=== PATIENT | female | born 1970 | race African-American/Black ===

== ENCOUNTER 2021-04-13 20:18 | Emergency (ER) | payer MEDICARE, OTHER ==
[~2021-04-13] VITALS: Ht 180.3 cm; Wt 120.5 kg
--- NOTE | 2021-04-13 21:46 | PHYS DOC ---
Past Medical History Past Medical History: Diabetes-Type II, High Cholesterol, Hypertension Past Surgical History: Cholecystectomy Smoking Status: Current Every Day Smoker Alcohol Use: None Drug Use: Marijuana General Adult EDM: Chief Complaint: MULTIPLE COMPLAINTS HPI: HPI: Patient is a 51 year old female who presents with a 2 day history of 8/10 left foot pain. Denies any trauma to the foot and states the pain began while she was laying in bed. Reports associated redness and pain over the foot as well as left 2nd toe swelling and pain. She is an uncontrolled diabetic and reports her last A1c a few weeks ago was 12. Denies any previous wounds or ulcers. She also reports a history of chronic back pain that has worsened recently. Denies fevers/chills, nausea/vomiting, chest pain, or shortness of breath. Review of Systems: Review of Systems: Constitutional: Denies fever or chills Eyes: Denies redness or eye pain HENT: Denies nasal congestion or sore throat Respiratory: Denies cough or shortness of breath Cardiovascular: Denies chest pain or palpitations GI: Denies abdominal pain, nausea, or vomiting : Denies dysuria or hematuria Musculoskeletal: Reports left foot and toe pain. Reports low back pain. Integument: Denies rash or skin lesions Neurologic: Reports neuropathy. Denies headache, focal weakness or sensory changes Complete systems were reviewed and found to be within normal limits, except as documented in this note. Heart Score: C/O Chest Pain: N/A Physical Exam: PE: Constitutional: Well developed, well nourished, no acute distress, non-toxic appearance HENT: Normocephalic, atraumatic Eyes: Conjunctiva normal, no discharge Neck: Normal range of motion, no tenderness, supple Lungs & Thorax: No respiratory distress, equal chest rise and fall Abdomen: Soft, no tenderness Skin: Warm, dry, no erythema, no rash Back: There is tenderness with palpation over the right lumbar musculature. Otherwise nontender. Extremities: There is erythema and tenderness over the medial aspect of the left foot and the left second toe. No ulcers. ROM intact. Distal pulses intact bilaterally. Neurologic: Alert and oriented X 3, normal motor function, normal sensory function, no focal deficits noted Psychologic: Affect normal, judgment normal Current Patient Data: Vital Signs: Vital Signs Date Time Temp Pulse Resp B/P (MAP) Pulse Ox O2 Delivery O2 Flow Rate FiO2 04/13/21 20:23 84 168/62 (97) 99 Room Air EKG: EKG: [] Radiology/Procedures: Radiology/Procedures: PROCEDURE: FOOT LEFT 3V Exam: Left foot 3 views INDICATION: Swelling TECHNIQUE: Frontal, lateral and oblique views of the left foot Comparisons: None FINDINGS: Bone mineralization is normal. No acute or healed fractures. Soft tissues are unremarkable. Joint spaces are well-maintained. IMPRESSION: No acute osseous abnormality Electronically signed by: Miguel Herndon MD (04/13/2021 10:26 PM) [facility] Course & Med Decision Making: Course & Med Decision Making 51 year old diabetic female presents with a 2 day history of left foot pain. Labs and imaging obtained and posted to chart. Administered 25mcg of fentanyl for pain with relief of symptoms. Was administered first dose of Lortab and Clindamyacin prior to discharge. Patient stable for discharge with outpatient follow-up with PCP. Provided appropriate referrals for PCP and podiatry. Discussed findings and plan with patient, who acknowledges understanding and agreement. Brandon Disclaimer: Brandon Disclaimer: This electronic medical record was generated, in whole or in part, using a voice recognition dictation system. Departure Departure Impression: Primary Impression: Foot pain, left Additional Impressions: Cellulitis Qualified Codes: L03.032 - Cellulitis of left toe Hyperglycemia Lactic acidosis Disposition: HOME / SELF CARE / HOMELESS Condition: STABLE Referrals: NO PCP (PCP) LILA BENAVIDES DPM Patient Instructions: Cellulitis, [id number], Hyperglycemia, Soth-ar-Saau, Lactic Acid, Lactate HAILEY BUSTILLO DO Apr 13, 2021 21:45
[2021-04-13] MEDS ORDERED: NEOMY/BACITR/POLYMYXIN OINT PACKET. TP ONE (22:15)
[2021-04-13] MEDS ORDERED: IV NORMAL SALINE 1000ML BAG 1,000 ML IV ONE (22:15)
[2021-04-13] MEDS ORDERED: fentaNYL PF VIAL 100 MCG/2 ML VIAL IV ONE (22:15)
--- NOTE | 2021-04-13 22:28 | RAD ---
Exam: Left foot 3 views INDICATION: Swelling TECHNIQUE: Frontal, lateral and oblique views of the left foot Comparisons: None FINDINGS: Bone mineralization is normal. No acute or healed fractures. Soft tissues are unremarkable. Joint spa annie are well-maintained. IMPRESSION: No acute osseous abnormality Electronically signed by: Miguel Herndon MD (04/13/2021 10:26 PM) [facility]
[2021-04-13 23:29] LABS: BASO % 0 % (0-3); EOS % 1 % (0-3); HEMATOCRIT 34.6 % (36.0-47.0); HEMOGLOBIN 11.6 g/dL (12.0-15.5); LYMPH # 1.7 x10^3/uL (1.0-4.8); LYMPH % 19 % (24-48); MEAN CORPUSCULAR HEMOGLOBIN 30 pg (25-35); MEAN CORPUSCULAR HGB CONC 34 g/dL (31-37); MEAN CORPUSCULAR VOLUME 90 fL (79-100); MONO % 10 % (0-9); NEUT # 6.5 x10^3/uL (1.8-7.7); NEUT % 70 % (31-73); PLATELET COUNT 244 x10^3/uL (140-400); RED BLOOD COUNT 3.85 x10^6/uL (3.50-5.40); RED CELL DISTRIBUTION WIDTH 14.5 % (11.5-14.5); WHITE BLOOD COUNT 9.3 x10^3/uL (4.0-11.0)
[2021-04-14] MEDS ORDERED: CLINDAMYCIN HCL 150 MG CAPSULE. PO ONE (00:15)
[2021-04-14] MEDS ORDERED: HYDROcodone/APAP 5/325MG 1 TAB TABLET PO ONE (00:15)
[2021-04-14 00:21] LABS: CALCIUM 8.4 mg/dL (8.5-10.1); CREATININE 1.4 mg/dL (0.6-1.0); GFR 47.8; POTASSIUM 3.9 mmol/L (3.5-5.1)
[2021-04-14 00:33] LABS: C-REACTIVE PROTEIN 11.1 mg/L (0-3.3)
[2021-04-14 00:35] VITALS: BP 182/76
[2021-04-14] MEDS ORDERED: HYDR-2761 PO (00:36)
[2021-04-14] MEDS ORDERED: CLIN300C9 PO (00:36)
[2021-04-15] MEDS ORDERED: HYDR-2761 PO (20:07)
[2021-04-15] MEDS ORDERED: CEPH500C PO (20:09)
[2021-04-15] MEDS ORDERED: FLUC150T PO (20:17)
== END 2021-04-14 00:50 | disposition home or self-care (01) ==
LOC: ER 20:18 → MERGE 20:18 → ER 04-14 00:50
DX: L03.032 Cellulitis of left toe (principal); E11.65 Type 2 diabetes mellitus with hyperglycemia; E87.2 Acidosis; E78.00 Pure hypercholesterolemia, unspecified; I10 Essential (primary) hypertension; F17.200 Nicotine dependence, unspecified, uncomplicated; Z90.49 Acquired absence of other specified parts of digestive tract
CPT/HCPCS: 36415; 73630; 80048; 83605; 85025; 85651; 86140; 87040; 96361; 96374; 99285; J3010; J7030

== ENCOUNTER 2021-04-20 08:32 | Outpatient (CLI) | payer MEDICARE ==
[2021-04-20] VITALS (14 sets, daily range): BP systolic 159–207; BP diastolic 61–108
[~2021-04-20] VITALS: Ht 180.3 cm; Wt 120.5 kg
[~2021-04-20 08:32] MED LIST: CEPH500C PO; CLIN300C9 PO; FLUC150T PO; HYDR-2761 PO; IODIXANOL 320 MG/ML 100 ML VIAL. ONE; LIDOCAINE 1% Multi-Dose 20 ML VIAL. ONE
--- NOTE | 2021-04-20 10:12 | PDOC ---
MODERATE SEDATION ASSESSMENT RISKS/ALTERNATIVES Risks/Alternatives Risks and alternatives of this type of sedation and procedure discussed with: RISK/ALTERNATIVES: Patient H & P ON CHART H & P H & P on chart and reviewed for co-morbid conditions and appropriate labs. H&P ON CHART: Yes STATUS PREG STATUS ASSESSED: N/A MEDS/ALLERGIES REVIEWED Meds/Allergies Reviewed Medications and Allergies including time and route of recently administered narcotics and sedatives. MEDS/ALLERGIES REVIEWED: Yes ASA RATING ASA RATING: III AIRWAY ASSESSMENT Airway Assessment Airway patency, oral function limitations, presence of caps, crowns, dentures, partials, and ability to extend neck assessed. AIRWAY ASSESSMENT: Yes MALLAMPATI SCORE MALLAMPATI SCORE: II PRE-SEDATION ASSESSMENT PRE-SEDATION ASSESSMENT: Yes SHERRILL SLAUGHTER MD Apr 20, 2021 10:12
[2021-04-20] MEDS ORDERED: fentaNYL PF VIAL 100 MCG/2 ML VIAL ONE ×2 (10:16→11:03)
[2021-04-20] MEDS ORDERED: VERAPAMIL 5 MG/2 ML VIAL. ONE (10:16)
[2021-04-20] MEDS ORDERED: HEPARIN for IV BOLUS 10,000 UNIT/10 ML VIAL. ONE (10:16)
[2021-04-20] MEDS ORDERED: MIDAZOLAM HCL/PF 2 MG/2 ML VIAL. ONE ×2 (10:16→11:03)
[2021-04-20] MEDS ORDERED: LIDOCAINE 1% PF 2 ML VIAL. ONE (10:17)
[2021-04-20] MEDS ORDERED: INSU100V13 SQ (10:18)
[2021-04-20] MEDS ORDERED: QUET400T4 PO (10:18)
[2021-04-20] MEDS ORDERED: PANT20TA2 PO (10:18)
[2021-04-20] MEDS ORDERED: CLIN300C9 PO (10:18)
[2021-04-20] MEDS ORDERED: NITROGLYCERIN 200 MCG/2 ML SYRINGE FOR CATH/VASC LAB. ONE ×2 (10:18→10:59)
[2021-04-20] MEDS ORDERED: CARV25TA2 PO (10:18)
[2021-04-20] MEDS ORDERED: FLUO20CA20 PO (10:18)
[2021-04-20] MEDS ORDERED: ASPI-630 PO (10:18)
[2021-04-20] MEDS ORDERED: ATOR40TA59 PO (10:18)
[2021-04-20] MEDS ORDERED: LOSA100T14 PO (10:18)
[2021-04-20] MEDS ORDERED: BUSP10TA PO (10:18)
[2021-04-20] MEDS ORDERED: METH-561 PO (10:18)
[2021-04-20] MEDS ORDERED: HYDR25TA PO (10:18)
[2021-04-20] MEDS ORDERED: OXYB5TAB10 PO (10:18)
[2021-04-20] MEDS ORDERED: TRAZ-123 PO (10:18)
[2021-04-20] MEDS ORDERED: CLOP75TA PO (10:18)
[2021-04-20] MEDS ORDERED: INSU100V31 SQ (10:18)
[2021-04-20] MEDS ORDERED: FURO20TA3 PO (10:18)
[2021-04-20] MEDS ORDERED: GABA600T7 PO (10:18)
[2021-04-20] MEDS ORDERED: CIPR500S2 PO (10:18)
[2021-04-20] MEDS ORDERED: NITROGLYCERIN 200 MCG/2 ML SYRINGE FOR CATH/VASC LAB. IART ONE (10:45)
[2021-04-20] MEDS ORDERED: MIDAZOLAM HCL/PF 2 MG/2 ML VIAL. IV ONE (10:45)
[2021-04-20] MEDS ORDERED: HEPARIN for IV BOLUS 10,000 UNIT/10 ML VIAL. IART ONE (10:45)
[2021-04-20] MEDS ORDERED: IODIXANOL 320 MG/ML 100 ML VIAL. IART ONE (10:45)
[2021-04-20] MEDS ORDERED: HEPARIN for IV BOLUS 10,000 UNIT/10 ML VIAL. IV ONE (10:45)
[2021-04-20] MEDS ORDERED: LIDOCAINE 1% PF 2 ML VIAL. INJ ONE (10:45)
[2021-04-20] MEDS ORDERED: fentaNYL PF VIAL 100 MCG/2 ML VIAL IV ONE (10:45)
[2021-04-20] MEDS ORDERED: VERAPAMIL 5 MG/2 ML VIAL. IART ONE (10:45)
[2021-04-20] MEDS ORDERED: diphenhydrAMINE 50 MG/ML VIAL ONE (11:03)
[2021-04-20] MEDS ORDERED: ASPIRIN 325 MG TABLET ONE (11:56)
[2021-04-20] MEDS ORDERED: ASPIRIN 325 MG TABLET PO ONE (12:00)
[2021-04-20] MEDS ORDERED: diphenhydrAMINE 50 MG/ML VIAL IVP ONE (12:00)
[2021-04-20] MEDS ORDERED: ACETAMINOPHEN 325 MG TABLET. PO PRN (12:15)
[2021-04-20] MEDS ORDERED: IV 1/2 NORMAL SALINE 1,000 ML IV SCH (12:15)
[2021-04-20] MEDS ORDERED: NITROGLYCERIN SUBLINGUAL 0.4 MG BOTTLE OF 25. SL PRN (12:15)
--- NOTE | 2021-04-20 12:25 | CARD ---
MR#: [id number] Date of Study: 04/20/2021 Ordering Physician: SHERRILL SLAUGHTER, Referring Physician: SHERRILL SLAUGHTER Tech: Camille Rosales RT(R) APPROVED REPORT Patient StatusOUT-PATIENT Squaring Shear Operator: Camille Rosales RT(R) Procedure(s) performed: 1. Aortogram with bilateral lower extremity runoff via right transradial sriram durand 2. Successful SOLAR SALES REP to chronic total occlusion involving the left superficial femoral artery 3. Successful SOLAR SALES REP to the right superficial femoral artery MODERATE SEDATION TIME: 100 MINUTES FLUORO TIME: 30.5 MIN DOSE: 131.4 GYCM2 CONTRAST: 140CC VISI INDICATION FOR PROCEDURE The indication(s) include : Peripheral artery disease with critical limb ischemia. CASE TECHNIQUE After explaining the risks, benefits, and alternative options, informed consent was obtained from the patient. IV conscious sedation was used throughout procedure with appropriate monitoring and was per formed in the presence of a registered nurse who was an independent trained observer other than the iveth morfin performing the procedure. During this case, Fluoroscopy and low osmolar contrast were used f or imaging. Specimen(s) Removed: No Estimated Blood loss: 15 cc's. PROCEDURE NARRATIVE After explaining the risk, benefits and alternative options, informed consent was obtained from patie nt. Patient was brought to the cardiac [facility] and her right wrist was prepped and draped in the us ual fashion after confirming a positive modified Dave's test. Arterial access was obtained in the r ight radial artery and a 6 Slovak sheath was inserted. 6 pigtail catheter was used to advance a guid ewire into the descending aorta which was then exchanged over the wire to 6F R2P PV multicurve cathet er with sideholes. This was positioned in the distal descending aorta and aortoiliac angiography was performed. The tip was then advanced into the left superficial femoral artery and selective left lo wer extremity angiography was performed. Subsequently, with the tip positioned in the right superfic ial femoral artery, selective right lower extremity angiography was performed. The following finding s were noted: FINDINGS 1. No significant stenosis involving the distal descending aorta 2. No significant stenosis involving left common iliac artery. The right common iliac artery showed 30% proximal stenosis. 3. No significant stenosis involving bilateral external and internal iliac arteries. 4. No significant stenosis involving bilateral common femoral arteries. 5. The left superficial femoral artery showed a long 100% chronic total occlusion involving the mid segment with distal reconstitution from collaterals. The right superficial femoral artery showed cardenas dem 70 and 95% stenoses in the mid to distal segment. 6. No significant stenosis involving the popliteal arteries bilaterally. 7. There is good three vessel runoff below the knee bilaterally. INTERVENTION The PVI catheter was exchanged over a guidewire to 149 cm 6F R2P destination Glidesheath slender and the tip was positioned in the left superficial femoral artery under fluoroscopy guidance. The chroni c total occlusion of the left superficial femoral artery was crossed with a 0.035 inch 400 cm Glidewi re with backup support from 200 cm Viper cath. Contrast injection through the catheter confirmed int raluminal location. Multiple inflations were then performed within the lesion using MobilePro R2P Metac ross 5 x 100 balloon. Follow-up angiography showed resolution of the lesions with good distal flow. The Glidesheath was then advanced under fluoroscopic guidance over a Glidewire into the right lower extremity and the tip was positioned in the right superficial femoral artery. The lesions in the dis la nena segment were crossed with the Glidewire and dilated successfully with the 5.0 x 100 mm Metacross balloon. Follow-up angiography showed resolution of the lesion with good distal flow. Patient sanjuana ated the procedure well. Hemostasis was achieved using TR band. There were no immediate complicatio ns. Conclusion 1. Severe bilateral lower extremity peripheral artery disease as described above 2. Successful balloon SOLAR SALES REP to chronic total occlusion involving the left superficial femoral artery 3. Successful balloon SOLAR SALES REP to the right superficial femoral artery Recommendations Vascular risk factor modification Signed by : Sherrill Slaughter, Electronically Approved : 04/20/2021 12:25:14
[2021-04-20] MEDS ORDERED: CARVEDILOL 12.5 MG TABLET. PO SCH (13:00)
[2021-04-20] MEDS ORDERED: LOSARTAN POTASSIUM 50 MG TABLET. PO SCH (13:00)
--- NOTE | 2021-04-20 14:49 | NUR ---
Discharge Note: SABAS YORK Discharge instructions and discharge home medications reviewed with Patient and a copy given. All questions have been answered and understanding verbalized. The following instructions and handouts were given: moderate sedation and radial site care. Discontinued periheral IV, no complications. Right radial site without bleeding,dsg changed and arm board reapplied. Patient discharged to home with her mom via private vehicle.
[2021-04-21] MEDS ORDERED: ASPIRIN CHEWABLE 81 MG TABLET. PO SCH (08:00)
--- NOTE | 2021-04-22 10:29 | CARD ---
MR#: [id number] Date of Study: 04/20/2021 Ordering Physician: SHERRILL SLAUGHTER, Referring Physician: SHERRILL SLAUGHTER Tech: Kate Shirley TAMMY APPROVED REPORT EXAM: Two-dimensional and M-mode echocardiogram with Doppler and color Doppler. Other Information Quality : Technically LimitedHR: 67bpm Rhythm : NSR INDICATION RISK FACTORS Hypertension Obesity Hyperlipidemia Family History 2D DIMENSIONS Left Atrium(2D)3.5 (1.6-4.0cm)IVSd1.5 (0.7-1.1cm) Aortic Root(2D)4.5 (2.0-3.7cm)LVDd1.6 (3.9-5.9cm) LEFT VENTRICLE The left ventricle is normal size. There is moderate concentric left ventricular hypertrophy. The lef t ventricular systolic function is normal and the ejection fraction is within normal range. Estimated 55% There is normal LV segmental wall motion. Transmitral Doppler flow pattern is Grade I-abnormal r elaxation pattern. RIGHT VENTRICLE The right ventricle is normal size. There is normal right ventricular wall thickness. The right ventr icular systolic function is normal. ATRIA The left atrium size is normal. The right atrium size is normal. The interatrial septum is intact wit h no evidence for an atrial septal defect or patent foramen ovale as noted on 2-D or Doppler imaging. AORTIC VALVE The aortic valve is normal in structure and function. Doppler and Color Flow revealed no significant aortic regurgitation. There is no significant aortic valvular stenosis. MITRAL VALVE The mitral valve is normal in structure and function. There is no evidence of mitral valve prolapse. There is no mitral valve stenosis. Doppler and Color Flow revealed no mitral valve regurgitation note d. TRICUSPID VALVE The tricuspid valve is normal in structure and function. Doppler and Color Flow revealed no tricuspid valve regurgitation noted. There is no tricuspid valve prolapse or vegetation. There is no tricuspid valve stenosis. PULMONIC VALVE Doppler and Color Flow revealed no pulmonic valvular regurgitation. There is no pulmonic valvular nichole nosis. GREAT VESSELS The aortic root is normal in size. The ascending aorta is normal in size. There is small diastolic fl ow noted in the short axis windows suggestive of possible communication between the aorta and pulmona ry artery. Eccentric trivial pulmonary regurgitation is also on the differential. The IVC is normal i n size and collapses >50% with inspiration. PERICARDIAL EFFUSION There is no evidence of significant pericardial effusion. Critical Notification Critical Value: No <Conclusion> There is moderate concentric left ventricular hypertrophy. The left ventricular systolic function is normal and the ejection fraction is within normal range. E stimated 55% There is normal LV segmental wall motion. There is small diastolic flow noted in the short axis windows suggestive of possible communication be tween the aorta and pulmonary artery. Eccentric trivial pulmonary regurgitation is also on the differ ential. Signed by : Adolfo Redding, Electronically Approved : 04/22/2021 10:28:54
== END 2021-04-20 15:03 | disposition home or self-care (01) ==
LOC: CCL 08:32
PROVIDERS: ATTEND Internal Medicine Cardiovascular Disease
DX: I73.9 Peripheral vascular disease, unspecified (principal); R07.9 Chest pain, unspecified; E66.9 Obesity, unspecified; I11.9 Hypertensive heart disease without heart failure; I10 Essential (primary) hypertension; E78.00 Pure hypercholesterolemia, unspecified; K21.9 Gastro-esophageal reflux disease without esophagitis; M19.90 Unspecified osteoarthritis, unspecified site; E11.9 Type 2 diabetes mellitus without complications; F41.9 Anxiety disorder, unspecified; F32.9 Major depressive disorder, single episode, unspecified; F17.210 Nicotine dependence, cigarettes, uncomplicated; Z79.82 Long term (current) use of aspirin; Z79.84 Long term (current) use of oral hypoglycemic drugs; Z79.899 Other long term (current) drug therapy; Z98.890 Other specified postprocedural states; Z72.89 Other problems related to lifestyle; Z88.8 Allergy status to other drugs, medicaments and biological substances
CPT/HCPCS: 37224; 75625; 75716; 93306; 99152; 99153; C1725; C1769; C1887; C1894; J1200; J1644; J2250; J3010; J3490; Q9967; 62321; 62323

== ENCOUNTER 2021-05-12 17:09 | Emergency (ER) | payer MEDICARE ==
[~2021-05-12] VITALS: Ht 180.3 cm; Wt 120.9 kg
[~2021-05-12 17:09] MED LIST changes: +ASPI-630 PO; +ATOR40TA59 PO; +BUSP10TA PO; +CARV25TA2 PO; +CIPR500S2 PO; +CLOP75TA PO; +FLUO20CA20 PO; +FURO20TA3 PO; +GABA600T7 PO; +HYDR25TA PO; +INSU100V13 SQ; +INSU100V31 SQ; -IODIXANOL 320 MG/ML 100 ML VIAL. ONE; -LIDOCAINE 1% Multi-Dose 20 ML VIAL. ONE; +LOSA100T14 PO; +METH-561 PO; +OXYB5TAB10 PO; +PANT20TA2 PO; +QUET400T4 PO; +TRAZ-123 PO
[2021-05-12 20:03] VITALS: BP 184/90
--- NOTE | 2021-05-12 20:28 | PHYS DOC ---
Past Medical History Past Medical History: Diabetes-Type II, High Cholesterol, Hypertension Additional Past Medical Histor: NEUROPATHY Past Surgical History: Appendectomy, Cholecystectomy, Hysterectomy Additional Past Surgical Histo: "STOMACH STENT" Smoking Status: Current Every Day Smoker Alcohol Use: None Drug Use: Marijuana General Adult EDM: Chief Complaint: FLANK PAIN HPI: HPI: Patient is a 51 year old female with past medical history hypertension hyperlipidemia diabetes presents with a 4-week history of left flank/back pain that radiates to the suprapubic and buttocks region. Patient states 4 weeks ago she was seen at [facility] and she was prescribed an antibiotic that started with a C that she thinks she took 3 times a day. Patients pain is reproducible with movement and the area is tender to palpation. Patient denies any injuries. Patient without any fevers. She denies any saddle anesthesia loss of bowel or bladder. Review of Systems: Review of Systems: Review of systems: Constitutional symptoms- No fever, no chills. Eyes- No Discharge, No Visual Loss Respiratory symptoms- No shortness of breath, No wheezing, No Dyspnea on Exertion Cardiovascular Systems; No chest pain, No Palpitations, No syncope Gastrointestinal symptoms: NO abdominal pain, no nausea, no vomiting or diarrhea. Genitourinary symptoms: No dysuria. Positive Urinary frequency Musculoskeletal symptoms: Positive back pain No extremity pain. NEUROLOGICAL Symptoms: No headache, no generalized weakness; No focal Weakness Skin: No rash. Heart Score: C/O Chest Pain: N/A Risk Factors: Risk Factors: DM, Current or recent (<one month) smoker, HTN, HLP, family history of CAD, obesity. Risk Scores: Score 0 - 3: 2.5% MACE over next 6 weeks - Discharge Home Score 4 - 6: 20.3% MACE over next 6 weeks - Admit for Clinical Observation Score 7 - 10: 72.7% MACE over next 6 weeks - Early Invasive Strategies Allergies: Allergies: Allergies Coded Allergies Type Severity Reaction Last Updated Verified lisinopril Allergy Unknown 04/18/21 Yes Physical Exam: PE: General: alert, no acute distress. Skin: warm, dry and intact, no erythema, no rash. HENT: bilateral external ears normal, oropharynx moist, nose normal. Head:: Normocephalic, atraumatic. Neck: Trachea midline. Eyes: EOMI, Normal conjunctiva, No drainage CARDIOVASCULAR: Regular rate and rhythm RESPIRATORY: No respiratory distress Back: Full range of motion. Tenderness to palpation left flank lateral left paraspinal lumbar region. Patient's buttocks on the left is tender to palpation MUSCULOSKELETAL: Full range of motion of bilateral upper and lower extremities. GASTROINTESTINAL: Abdomen soft without rebound or guarding. NEUROLOGICAL: Alert and noted to person, place and time. No neurological deficits observed Psychiatric: Cooperative. Normal judgment EKG: EKG: [] Radiology/Procedures: Radiology/Procedures: [] Course & Med Decision Making: Course & Med Decision Making Pertinent Labs and Imaging studies reviewed. (See chart for details) [] Patient was evaluated for chief complaint. Work-up consisted of urinalysis. Results reviewed and discussed with patient. Patient's urine not consistent with urinary tract infection. Treatment included pain medications with improvement. Patient was discharged home on pain muscle relaxant medications and steroids. Patient instructed to follow-up with primary care physician. Brandon Disclaimer: Brandon Disclaimer: This electronic medical record was generated, in whole or in part, using a voice recognition dictation system. Departure Departure Impression: Primary Impression: Flank pain Additional Impressions: Left flank pain Back pain Sciatic pain Disposition: HOME / SELF CARE / HOMELESS Condition: STABLE Referrals: BERYL FIGUEROA (PCP) Patient Instructions: Flank Pain, Sciatica Scripts Cyclobenzaprine Hcl (CYCLOBENZAPRINE HCL) 10 Mg Tablet 1 TAB PO QHS, #20 TAB Prov: ALMA CORONA I DO 05/12/21 Tramadol Hcl (ULTRAM) 50 Mg Tablet 1 TAB PO PRN Q6HRS PRN for pain MDD 4 Tablet(s) for 7 Days, #28 TAB 0 Refills Prov: ALMA CORONA DO 05/12/21 Prednisone (PREDNISONE) 50 Mg Tablet 1 TAB PO DAILY, #5 TAB Prov: ALMA CORONA I DO 05/12/21 ALMA CORONA DO May 12, 2021 20:28
[2021-05-12 20:40] LABS: BILIRUBIN,URINE NEGATIVE (NEG); CLARITY,URINE CLEAR; COLOR,URINE YELLOW; NITRITE,URINE NEGATIVE (NEG); PROTEIN,URINE NEGATIVE (NEG-TRACE)
[2021-05-12 20:45] LABS: U PREG PATIENT NEGATIVE (NEG)
[2021-05-12 20:52] LABS: BACTERIA,URINE FEW /HPF (0-FEW); RBC,URINE OCC /HPF (0-2); WBC,URINE OCC /HPF (0-4)
[2021-05-12] MEDS ORDERED: KETOROLAC 60 MG/2 ML VIAL. IM ONE (21:30)
[2021-05-12] MEDS ORDERED: PRED50TA PO (21:47)
[2021-05-12] MEDS ORDERED: TRAM-48 PO (21:47)
[2021-05-12] MEDS ORDERED: CYCL10TA2 PO (21:47)
== END 2021-05-12 22:33 | disposition home or self-care (01) ==
LOC: ER 17:09
DX: M54.42 Lumbago with sciatica, left side (principal); R10.9 Unspecified abdominal pain; R35.0 Frequency of micturition; E78.00 Pure hypercholesterolemia, unspecified; I10 Essential (primary) hypertension; E11.40 Type 2 diabetes mellitus with diabetic neuropathy, unspecified; F17.200 Nicotine dependence, unspecified, uncomplicated; Z90.89 Acquired absence of other organs; Z90.49 Acquired absence of other specified parts of digestive tract; Z90.710 Acquired absence of both cervix and uterus; Z88.8 Allergy status to other drugs, medicaments and biological substances
CPT/HCPCS: 81001; 81025; 96372; 99283; J1885

== ENCOUNTER → 2021-05-24 | Outpatient (CLI) | payer MEDICARE ==
[2021-05-12 20:03] VITALS: BP 184/90
[~2021-05-24] MED LIST changes: +CLIN-94 PO; -CLIN300C9 PO; +CYCL10TA2 PO; +PRED50TA PO; +TRAM-48 PO
--- NOTE | 2021-05-25 08:26 | KCIC ---
EXAM: XR LUMBAR SPINE 4+V 05/24/2021 12:37 PM CLINICAL INDICATION: Chronic lower back pain, worse on left. COMPARISON: None TECHNIQUE: 5 views of the lumbar spine FINDINGS: There 5 nonrib-bearing lumbar vertebral bodies. No acute fracture. Alignment is normal. Th ere is mild disc space narrowing with anterior osteophytes, greatest at L3-L4 and L5-S1. Multilevel f acet arthrosis, severe at L3-4 through L5-S1. There is degenerative disc disease in the lower thoraci c spine. Cholecystectomy clips are noted. IMPRESSION: 1. Mild multilevel degenerative disc disease. 2. Advanced multilevel facet arthrosis, severe at L3-L4 through L5-S1. Electronically signed by: Johanny Issa MD (05/25/2021 8:24 AM) [id number]
== END ==
LOC: KCIC 12:34
PROVIDERS: ATTEND Family Medicine
DX: M47.817 Spondylosis without myelopathy or radiculopathy, lumbosacral region (principal); M51.34 Other intervertebral disc degeneration, thoracic region; Z90.49 Acquired absence of other specified parts of digestive tract
CPT/HCPCS: 72110

== ENCOUNTER 2021-06-10 11:23 | Emergency (ER) | payer MEDICARE, MEDICAID ==
[~2021-06-10] VITALS: Ht 180.3 cm; Wt 120.0 kg
[2021-06-10] MEDS ORDERED: ORPHENADRINE CITRATE 60 MG/2 ML VIAL. IM ONE (12:30)
[2021-06-10] MEDS ORDERED: KETOROLAC TROMETHAMINE 10 MG TABLET PO ONE (12:30)
[2021-06-10] MEDS ORDERED: traMADol 50 MG TABLET PO ONE (12:30)
[2021-06-10 12:37] LABS: BILIRUBIN,URINE NEGATIVE (NEG); CLARITY,URINE CLEAR; COLOR,URINE YELLOW; NITRITE,URINE NEGATIVE (NEG); PH,URINE 7.5 (<5.0-8.0); PROTEIN,URINE NEGATIVE (NEG-TRACE); UROBILINOGEN,URINE 0.2 mg/dL (0.2 mg/dL)
[2021-06-10 12:54] LABS: BASO # 0.1 x10^3/uL (0.0-0.2); BASO % 1 % (0-3); EOS % 0 % (0-3); HEMATOCRIT 39.4 % (36.0-47.0); LYMPH % 11 % (24-48); MEAN CORPUSCULAR HEMOGLOBIN 29 pg (25-35); MEAN CORPUSCULAR HGB CONC 33 g/dL (31-37); MEAN CORPUSCULAR VOLUME 89 fL (79-100); MONO % 6 % (0-9); NEUT # 15.2 x10^3/uL (1.8-7.7); NEUT % 83 % (31-73); PLATELET COUNT 275 x10^3/uL (140-400); RED BLOOD COUNT 4.43 x10^6/uL (3.50-5.40); WHITE BLOOD COUNT 18.3 x10^3/uL (4.0-11.0)
--- NOTE | 2021-06-10 12:54 | RAD ---
EXAMINATION: Noncontrast CT of the abdomen and pelvis. INDICATION: Dysuria COMPARISONS: CT abdomen pelvis from 11/25/2013 TECHNIQUE: Axial 3 mm thick sections were obtained without oral or IV contrast. Sagittal and coronal reformats were obtained. FINDINGS: KIDNEYS AND RENAL COLLECTING SYSTEMS RIGHT KIDNEY AND URETER: No evidence of right renal or ureteric calculi. No hydronephrosis. No focal renal lesions, within the limits of this noncontrast examination. LEFT KIDNEY AND URETER: No evidence of left renal or ureteric calculi. No hydronephrosis. No focal renal lesions, within the limits of this noncontrast examination. URINARY BLADDER: Decompressed without evidence of acute process. OTHER: Bibasilar scarring and/or atelectasis. Liver is normal in size and morphology. No discrete hepatic lesions. The gallbladder is surgically ab sent. No significant biliary ductal dilation. The spleen, adrenals, and atrophic pancreas are unremar kable. Stomach is normal. No evidence of bowel obstruction or focal wall thickening. There is a moderate sto ol burden within the descending and proximal transverse colon. Scattered sigmoid diverticulosis witho ut evidence of diverticulitis. No free intra-abdominal air or free fluid. Appendix is surgically abse nt. No pathologically enlarged abdominal or pelvic lymph nodes. Incomplete evaluation of the stent at the proximal SMA. Mild atherosclerotic disease of the origin of the celiac artery. Mild aortobiiliac ath erosclerotic disease. Uterus is absent. No suspicious adnexal masses. Anterior abdominal wall is unremarkable. Multilevel degenerative changes with no acute fracture or suspicious osseous abnormality. IMPRESSION: 1. No evidence of acute process in the abdomen or pelvis to correlate with patient's symptoms. 2. Chronic/incidental findings, as above. Electronically signed by: Jakob Drake DO (06/10/2021 12:52 PM) [id number]
[2021-06-10 12:59] LABS: BACTERIA,URINE 0 /HPF (0-FEW); RBC,URINE 0 /HPF (0-2); WBC,URINE 0 /HPF (0-4)
[2021-06-10 13:03] LABS: CALCIUM 8.4 mg/dL (8.5-10.1); GFR 70.5; POTASSIUM 3.8 mmol/L (3.5-5.1)
--- NOTE | 2021-06-10 13:07 | PHYS DOC ---
Past Medical History Past Medical History: Diabetes-Type II (insulin dependent), High Cholesterol, Hypertension Additional Past Medical Histor: NEUROPATHY (VIANEY DONIS) Past Surgical History: Angioplasty (bilateral LE), Appendectomy, Cholecystectomy, Hysterectomy Additional Past Surgical Histo: "STOMACH STENT" (VIANEY DONIS) Smoking Status: Current Every Day Smoker Additional Information: PT REPORTS APPROX 1-2 CIGARETTES PER DAY, THAT SHE IS TRYING TO QUIT. Alcohol Use: Occasionally Drug Use: Marijuana Social History Narrative: PT REPORTS OCCASIONALLY MARIJUANA (VIANEY DONIS) General Adult EDM: Chief Complaint: MULTIPLE COMPLAINTS HPI: HPI: Patient is a 51 year old female with history of chronic back pain who presents with worsening back pain, sore throat and suicidal ideation. Patient states her back pain has been ongoing for over 1 year, but for the past week has worsened and is 10/10. Patient states she was diagnosed at with bulging disks, spinal stenosis and arthritis. She saw Dr. Mendoza 2 weeks ago and arthritis was seen on x-ray. She has been waiting on a call from the spine clinic for further evaluation and management. She reports associated dysuria, denies hematuria. Patient sore throat began yesterday. She denies any sick contacts, however was diagnosed with Covid 1 month ago. She is fully vaccinated, with her last va ccine dose being in December. Talking and swallowing exacerbates her throat pain. Patient reports SI intermittently for weeks. She denies having any plan to hurt herself and states "I am just tired of being in pain," and becomes tearful. 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 Patient has no other complaints at this time. (VIANEY DONIS) Review of Systems: Review of Systems: Constitutional: Denies fever or chills. Eyes: Denies change in visual acuity. HENT: See HPI Respiratory: Denies cough or shortness of breath. Cardiovascular: Denies chest pain or edema. GI: Denies abdominal pain, nausea, vomiting, bloody stools or diarrhea. : See HPI Musculoskeletal: See HPI Neurologic: Denies headache, paresthesias, focal weakness. Psychiatric: See HPI (VIANEY DONIS) Heart Score: C/O Chest Pain: No (VIANEY DONIS) Current Medications: Current Medications Medications (Trade) Dose Ordered Sig/[facility] Start Time Stop Time Status Last Admin Dose Admin Ketorolac Tromethamine (Toradol) 20 mg 1X ONCE 06/10/21 12:30 06/10/21 12:38 DC 06/10/21 12:53 20 MG Orphenadrine Citrate (Norflex) 60 mg 1X ONCE 06/10/21 12:30 06/10/21 12:38 DC 06/10/21 12:55 60 MG Tramadol HCl (Ultram) 50 mg 1X ONCE 06/10/21 12:30 06/10/21 12:38 DC 06/10/21 12:53 50 MG (VIANEY DONIS) Allergies: Allergies: Allergies Coded Allergies Type Severity Reaction Last Updated Verified lisinopril Allergy Unknown 04/18/21 Yes (VIANEY DONIS) Physical Exam: PE: Constitutional: Well developed, well nourished, no acute distress, non-toxic appearance. HENT: Normocephalic, atraumatic, bilateral external ears normal, oropharynx moist, oropharynx erythematous with bilaterally 2+ swollen tonsils, nose normal. Eyes: Conjunctiva normal, no discharge. Neck: Normal range of motion, anterior cervical LAD, no stridor. Cardiovascular: Heart rate regular rhythm, no murmur. Lungs & Thorax: Bilateral breath sounds clear to auscultation. Abdomen: Bowel sounds normal, soft, no tenderness, no masses, no pulsatile masses. Skin: Warm, dry, no erythema, no rash. Back: No tenderness, no CVA tenderness, straight leg raise test negative. Neurologic: Alert and oriented x3, normal motor function, normal sensory function, no focal deficits noted. Psychologic: Affect desperate for pain management, fair judgment, mood depressed. (VIANEY DONIS) Current Patient Data: Labs: Laboratory Tests Test 06/10/21 11:56 06/10/21 12:40 06/10/21 12:41 06/10/21 12:42 Urine Collection Type Void Urine Color Yellow Urine Clarity Clear Urine pH 7.5 (<5.0-8.0) Urine Specific [place] 1.010 (1.000-1.030) Urine Protein Negative mg/dL (NEG-TRACE) Urine Glucose (UA) Negative mg/dL (NEG) Urine Ketones (Stick) Negative mg/dL (NEG) Urine Blood Negative (NEG) Urine Nitrite Negative (NEG) Urine Bilirubin Negative (NEG) Urine Urobilinogen Dipstick 0.2 mg/dL (0.2 mg/dL) Urine Leukocyte Esterase Negative (NEG) Urine RBC 0 /HPF (0-2) Urine WBC 0 /HPF (0-4) Urine Squamous Epithelial Cells Few /LPF Urine Bacteria 0 /HPF (0-FEW) White Blood Count 18.3 x10^3/uL (4.0-11.0) Red Blood Count 4.43 x10^6/uL (3.50-5.40) Hemoglobin 13.0 g/dL (12.0-15.5) Hematocrit 39.4 % (36.0-47.0) Mean Corpuscular Volume 89 fL (79-100) Mean Corpuscular Hemoglobin 29 pg (25-35) Mean Corpuscular Hemoglobin Concent 33 g/dL (31-37) Red Cell Distribution Width 14.0 % (11.5-14.5) Platelet Count 275 x10^3/uL (140-400) Neutrophils (%) (Auto) 83 % (31-73) Lymphocytes (%) (Auto) 11 % (24-48) Monocytes (%) (Auto) 6 % (0-9) Eosinophils (%) (Auto) 0 % (0-3) Basophils (%) (Auto) 1 % (0-3) Neutrophils # (Auto) 15.2 x10^3/uL (1.8-7.7) Lymphocytes # (Auto) 2.0 x10^3/uL (1.0-4.8) Monocytes # (Auto) 1.0 x10^3/uL (0.0-1.1) Eosinophils # (Auto) 0.0 x10^3/uL (0.0-0.7) Basophils # (Auto) 0.1 x10^3/uL (0.0-0.2) Sodium Level 142 mmol/L (136-145) Potassium Level 3.8 mmol/L (3.5-5.1) Chloride Level 104 mmol/L (98-107) Carbon Dioxide Level 30 mmol/L (21-32) Anion Gap 8 (6-14) Blood Urea Nitrogen 10 mg/dL (7-20) Creatinine 1.0 mg/dL (0.6-1.0) Estimated GFR (Cockcroft-Gault) 70.5 BUN/Creatinine Ratio 10 (6-20) Glucose Level 156 mg/dL (70-99) Calcium Level 8.4 mg/dL (8.5-10.1) Total Bilirubin 0.3 mg/dL (0.2-1.0) Aspartate Amino Transf (AST/SGOT) 14 U/L (15-37) Alanine Aminotransferase (ALT/SGPT) 27 U/L (14-59) Alkaline Phosphatase 117 U/L (46-116) Total Protein 6.9 g/dL (6.4-8.2) Albumin 3.4 g/dL (3.4-5.0) Albumin/Globulin Ratio 1.0 (1.0-1.7) Influenza Type A Antigen Negative (NEGATIVE) Influenza Type B Antigen Negative (NEGATIVE) Group A Streptococcus Rapid Positive (NEGATIVE) Vital Signs: Vital Signs Date Time Temp Pulse Resp B/P (MAP) Pulse Ox O2 Delivery O2 Flow Rate FiO2 06/10/21 12:58 80 16 159/71 (100) 99 Room Air 06/10/21 11:47 98.9 98.9 (VIANEY DONIS) Radiology/Procedures: Radiology/Procedures: PROCEDURE: CT ABDOMEN PELVIS WO CONTRAST EXAMINATION: Noncontrast CT of the abdomen and pelvis. INDICATION: Dysuria COMPARISONS: CT abdomen pelvis from 11/25/2013 TECHNIQUE: Axial 3 mm thick sections were obtained without oral or IV contrast. Sagittal and coronal reformats were obtained. FINDINGS: KIDNEYS AND RENAL COLLECTING SYSTEMS RIGHT KIDNEY AND URETER: No evidence of right renal or ureteric calculi. No hydronephrosis. No focal renal lesions, within the limits of this noncontrast examination. LEFT KIDNEY AND URETER: No evidence of left renal or ureteric calculi. No hydronephrosis. No focal renal lesions, within the limits of this noncontrast examination. URINARY BLADDER: Decompressed without evidence of acute process. OTHER: Bibasilar scarring and/or atelectasis. Liver is normal in size and morphology. No discrete hepatic lesions. The gallbl adder is surgically absent. No significant biliary ductal dilation. The spleen, adrenals, and atrophic pancreas are unremarkable. Stomach is normal. No evidence of bowel obstruction or focal wall thickening. There is a moderate stool burden within the descending and proximal transverse colon. Scattered sigmoid diverticulosis without evidence of diverticulitis. No free intra-abdominal air or free fluid. Appendix is surgically absent. No pathologically enlarged abdominal or pelvic lymph nodes. Incomplete evaluation of the stent at the proximal SMA. Mild atherosclerotic disease of the origin of the celiac artery. Mild aortobiiliac atherosclerotic disease. Uterus is absent. No suspicious adnexal masses. Anterior abdominal wall is unremarkable. Multilevel degenerative changes with no acute fracture or suspicious osseous abnormality. IMPRESSION: 1. No evidence of acute process in the abdomen or pelvis to correlate with patient's symptoms. 2. Chronic/incidental findings, as above. Electronically signed by: Jakob Drake DO (06/10/2021 12:52 PM) [id number] (VIANEY DONIS) Course & Med Decision Making: Course & Med Decision Making Pertinent Labs and Imaging studies reviewed. (See chart for details) While patient states that she wants to kill herself, she states it is secondary to being in pain. Abdominal CT without contrast ordered to evaluate for renal stones with acute on chronic back pain and dysuria. Rapid strep test positive. Patient will be treated with penicillin. 1330: Patient is now resting in bed and appears much more comfortable. She states that her pain is now tolerable 6/10 and denies SI. She will be prescribed tramadol, Toradol, Norflex to treat her back pain until she is able to see spine clinic. Patient states that she is compliant and takes her medications for anxiety, depression with psychosis, PTSD. She reports she feels safe and well enough to go home. Patient understands and is agreeable to discharge plan. (VIANEY DONIS) Dragon Disclaimer: Dragon Disclaimer: This electronic medical record was generated, in whole or in part, using a voice recognition dictation system. (VIANEY DONIS) Departure Departure Impression: Primary Impression: Strep pharyngitis Additional Impressions: Chronic back pain greater than 3 months duration Anxiety and depression Disposition: 01 HOME / SELF CARE / HOMELESS Condition: STABLE Referrals: Chang MENDOZA MD (PCP) CHONG CUEVA MD Patient Instructions: Chronic Back Pain, Strep Throat, [id number], Suicidal Feelings, How to Help Yourself Additional Instructions: Your work-up today revealed that you do have strep throat. You're prescribed penicillin. Please take the full course of antibiotics. Additionally you were provided with prescriptions for the medications that you received here in the emergency department to treat your chronic back pain. Due to the chronic nature of your back pain, a single prescriber would be more appropriate for pain management versus multiple ER visits. You should follow-up with Dr. Mendoza or Dr. Cueva regarding further evaluation and management of your chronic pain. He may be able to provide you with a second referral to the spine clinic, so that you may be seen more promptly. Please return to the emergency department for recurrent symptoms, worsening symptoms, or development of new symptoms. Scripts Ketorolac Tromethamine (KETOROLAC TROMETHAMINE) 10 Mg Tablet 1 TAB PO PRN Q6HRS for 5 Days, #20 TAB Prov: VIANEY DONIS 06/10/21 Tramadol Hcl (TRAMADOL HCL) 50 Mg Tablet 50 MG PO PRN Q6HRS PRN for PAIN, #20 TAB Prov: VIANEY DONIS 06/10/21 Orphenadrine Citrate (ORPHENADRINE CITRATE) 100 Mg Tablet.er 1 TAB PO BID, #20 TAB 1 Refill Prov: VIANEY DONIS 06/10/21 Penicillin V Potassium (PENICILLIN V POTASSIUM) 500 Mg Tablet 1 TAB PO BID for strep pharyngitis for 10 Days, #20 TAB Prov: VIANEY DONIS 06/10/21 Attending Signature Attending Signature I have reviewed the PA/TOWER LOADER OPERATOR's note and plan of care. I was available for consultation as needed during the patient's visit in the emergency department. I agree with the clinical impression, plan, and disposition. (HAILEY BUSTILLO DO) VIANEY DONIS Jun 10, 2021 13:07 HAILEY BUSTILLO DO Jun 10, 2021 17:01
[2021-06-10 13:08] LABS: ALBUMIN 3.4 g/dL (3.4-5.0); TOTAL BILIRUBIN 0.3 mg/dL (0.2-1.0); TOTAL PROTEIN 6.9 g/dL (6.4-8.2)
[2021-06-10 13:11] LABS: INFLUENZA A PATIENT NEGATIVE (NEGATIVE); INFLUENZA B PATIENT NEGATIVE (NEGATIVE)
[2021-06-10] MEDS ORDERED: KETO10TA PO (13:46)
[2021-06-10] MEDS ORDERED: ORPH100T PO (13:46)
[2021-06-10] MEDS ORDERED: PENI500T PO (13:46)
[2021-06-10] MEDS ORDERED: TRAM50TA PO (13:46)
[2021-06-10 14:03] VITALS: BP 192/87
[2021-06-10 14:50] LABS: % BANDS 4 % (0-9); % LYMPHS 9 % (24-48); PLT ESTIMATE ADEQUATE (ADEQUATE)
[2021-06-10 14:51] LABS: % MONOS 3 % (0-10); % SEGS 84 % (35-66)
== END 2021-06-10 15:17 | disposition home or self-care (01) ==
LOC: ER 11:23
DX: J02.0 Streptococcal pharyngitis (principal); B95.0 Streptococcus, group A, as the cause of diseases classified elsewhere; G89.29 Other chronic pain; F41.9 Anxiety disorder, unspecified; F32.9 Major depressive disorder, single episode, unspecified; E11.40 Type 2 diabetes mellitus with diabetic neuropathy, unspecified; E78.00 Pure hypercholesterolemia, unspecified; F17.210 Nicotine dependence, cigarettes, uncomplicated; Z95.5 Presence of coronary angioplasty implant and graft; Z88.6 Allergy status to analgesic agent
CPT/HCPCS: 36415; 74176; 80053; 81001; 85007; 85025; 87804; 87880; 96372; 99284; J2360

== ENCOUNTER 2021-06-22 14:49 | Emergency (ER) | payer MEDICARE, MEDICAID ==
[~2021-06-22] VITALS: Ht 180.3 cm; Wt 120.4 kg
[~2021-06-22 14:49] MED LIST changes: +CYCL10TA19 PO; -CYCL10TA2 PO; -FLUO20CA20 PO; +FLUO20CA22 PO; +KETO10TA PO; +ORPH100T PO; +PENI500T PO; +TRAM50TA PO
[2021-06-22 15:04] VITALS: BP 180/78
[2021-06-22] MEDS ORDERED: KETOROLAC 15 MG/ML VIAL. IM ONE (15:45)
--- NOTE | 2021-06-22 15:46 | PHYS DOC ---
Past Medical History Past Medical History: Diabetes-Type II, High Cholesterol, Hypertension Additional Past Medical Histor: NEUROPATHY Past Surgical History: Angioplasty, Appendectomy, Cholecystectomy, Hysterectomy Additional Past Surgical Histo: "STOMACH STENT" Smoking Status: Current Every Day Smoker Alcohol Use: Occasionally Drug Use: Marijuana General Adult EDM: Chief Complaint: MECHANICAL FALL HPI: HPI: Patient is a 51 year old female who presents with left lower extremity pain after a fall at 1000 today. Patient states she "slipped in mud" outside of a hotel on the [place] side of the [facility]. Her current pain is in her low back, her left knee, and left ankle. She states that when she fell her left lower extremity "kind of went behind." Patient denies bowel or bladder incontinence, saddle anesthesia or new paresthesias. Patient reports she has peripheral neuropathy, denies history of gout. She states that her left knee is "[id number]," with severe arthritis. Patient has no other complaints at this time. Review of Systems: Review of Systems: 12 systems reviewed. ROS negative except as mentioned in HPI. Heart Score: C/O Chest Pain: No Allergies: Allergies: Allergies Coded Allergies Type Severity Reaction Last Updated Verified lisinopril Allergy Unknown 04/18/21 Yes Physical Exam: PE: Constitutional: Obese, no acute distress, non-toxic appearance. Neck: Normal range of motion, no tenderness, no stridor. Cardiovascular: Heart rate regular rhythm, no murmur. Lungs & Thorax: Bilateral breath sounds clear to auscultation. Skin: Warm, dry, no erythema, no rash, no abrasion, no laceration. Back: No step-offs, midline lumbar tenderness appreciated (consistent with patient's baseline), bilateral paraspinal tenderness appreciated. Extremities: LLElateral aspect of left knee just distal to patella swollen and tender, medial malleolus with mild swelling and bony tenderness, dorsal aspect of foot with ecchymosis and swelling. No tenderness, no cyanosis, no clubbing, ROM intact, no edema. Neurologic: Alert and oriented x3, normal motor function, normal sensory function, no focal deficits noted. Psychologic: Affect appropriate, fair judgment, mood "in pain." Current Patient Data: Vital Signs: Vital Signs Date Time Temp Pulse Resp B/P (MAP) Pulse Ox O2 Delivery O2 Flow Rate FiO2 10/29/21 15:04 98.0 82 20 180/78 (112) 96 Room Air 98.0 Radiology/Procedures: Radiology/Procedures: PROCEDURE: LUMBAR SPINE 2-3V Exam performed: X-ray lumbar spine and x-ray left knee. HISTORY: Back pain and knee pain status post fall. DATE OF SERVICE: 06/22/2021. COMPARISON: None available FINDINGS: AP, lateral and cone view of the lumbosacral junction is obtained. 5 nonrib- bearing vertebral bodies identified. The vertebral body heights are maintained. There is narrowing of several intervertebral disc spaces with mild arthritic spurring. Multilevel bilateral apophyseal joint hypertrophic changes are seen. There is no acute compression fracture. Nonspecific bowel gas pattern. IMPRESSION: Spondylotic changes and multilevel disc degenerative changes are seen. No acute abnormality seen. Electronically signed by: Suzy Sanford MD (06/22/2021 4:38 PM) [id number] PROCEDURE: FOOT LEFT 3V EXAM: Left foot, 3 views. HISTORY: Fall. COMPARISON: None. FINDINGS: 3 views of the left foot are obtained. There is no fracture, dislocation or subluxation. There is a small plantar spur. There is slight ossification along the plantar fascia. There is a small ossicle adjacent to the dorsal aspect of the talus, likely due to chronic nonunited avulsion fracture fragment. IMPRESSION: No acute osseous finding. Electronically signed by: Yesi Ley MD (06/22/2021 4:37 PM) [id number] Course & Med Decision Making: Course & Med Decision Making Pertinent Labs and Imaging studies reviewed. (See chart for details) Patient has a history of chronic back pain, for which she is being evaluated with Dr. Mendoza. Work-up today will include plain films of her left ankle, left knee and lumbar spine. No acute injury seen on plain films today. Patient still has not seen her primary care provider or the spine clinic regarding her chronic back pain. She reports she has used all of the prescriptions provided to her on her last visit to the emergency department by me. Advised her that for more opioid pain medication, she will need to see a pain management doctor. However, I did prescribe additional Norflex. Brandon Disclaimer: Brandon Disclaimer: This electronic medical record was generated, in whole or in part, using a voice recognition dictation system. Departure Departure Impression: Primary Impression: Contusion of left foot, initial encounter Additional Impressions: Contusion of left knee, initial encounter Acute exacerbation of chronic low back pain Disposition: HOME / SELF CARE / HOMELESS Condition: STABLE Referrals: Chang MENDOZA MD (PCP) CHONG CUEVA MD Patient Instructions: RICE - Routine Care for Injuries, [id number] Additional Instructions: You may take [id number] naproxen or ibuprofen NSAIDs for inflammation and pain. Additionally, you were provided more Norflex for your chronic back pain spasms. Please return to the emergency department if your symptoms worsen or you develop new symptoms. I like to emphasize the need for you to see a pain management or spine doctor for further treatment for your chronic back pain. Scripts Orphenadrine Citrate (ORPHENADRINE CITRATE) 100 Mg Tablet.er 1 TAB PO PRN Q12HR PRN for PAIN, #20 TAB 1 Refill Prov: VIANEY DONIS 06/22/21 VIANEY DONIS Jun 22, 2021 15:45
--- NOTE | 2021-06-22 16:39 | RAD ---
EXAM: Left foot, 3 views. HISTORY: Fall. COMPARISON: None. FINDINGS: 3 views of the left foot are obtained. There is no fracture, dislocation or subluxation. Th ere is a small plantar spur. There is slight ossification along the plantar fascia. There is a small ossicle adjacent to the dorsal aspect of the talus, likely due to chronic nonunited avulsion fracture fragment. IMPRESSION: No acute osseous finding. Electronically signed by: Yesi Ley MD (06/22/2021 4:37 PM) [id number]
--- NOTE | 2021-06-22 16:40 | RAD ---
Exam performed: X-ray lumbar spine and x-ray left knee. HISTORY: Back pain and knee pain status post fall. DATE OF SERVICE: 06/22/2021. COMPARISON: None available FINDINGS: AP, lateral and cone view of the lumbosacral junction is obtained. 5 nonrib-bearing vertebral bodies identified. The vertebral body heights are maintained. There is narrowing of several intervertebral d isc spaces with mild arthritic spurring. Multilevel bilateral apophyseal joint hypertrophic changes a re seen. There is no acute compression fracture. Nonspecific bowel gas pattern. IMPRESSION: Spondylotic changes and multilevel disc degenerative changes are seen. No acute abnormality seen. Electronically signed by: Suzy Sanford MD (06/22/2021 4:38 PM) [id number]
[2021-06-22] MEDS ORDERED: ORPH100T PO (17:08)
== END 2021-06-22 17:20 | disposition home or self-care (01) ==
LOC: ER 14:49
DX: S90.32XA Contusion of left foot, initial encounter (principal); S80.02XA Contusion of left knee, initial encounter; G89.29 Other chronic pain; M54.50 Low back pain, unspecified; E78.00 Pure hypercholesterolemia, unspecified; I10 Essential (primary) hypertension; E11.40 Type 2 diabetes mellitus with diabetic neuropathy, unspecified; F17.200 Nicotine dependence, unspecified, uncomplicated; Z95.5 Presence of coronary angioplasty implant and graft; W01.0XXA Fall on same level from slipping, tripping and stumbling without subsequent striking against object, initial encounter; Y93.89 Activity, other specified; Y92.89 Other specified places as the place of occurrence of the external cause; Y99.8 Other external cause status
CPT/HCPCS: 72100; 73564; 73630; 96372; 99284; J1885

== ENCOUNTER 2021-06-25 17:25 | Emergency (ER) | payer MEDICARE, MEDICAID ==
[~2021-06-25] VITALS: Ht 180.3 cm; Wt 120.4 kg
[2021-06-25 19:50] VITALS: BP 175/88
--- NOTE | 2021-06-25 19:54 | PHYS DOC ---
Past Medical History Past Medical History: Diabetes-Type II, High Cholesterol, Hypertension Additional Past Medical Histor: NEUROPATHY Past Surgical History: Angioplasty, Appendectomy, Cholecystectomy, Hysterectomy Additional Past Surgical Histo: "STOMACH STENT" Smoking Status: Current Every Day Smoker Alcohol Use: Occasionally Drug Use: Marijuana General Adult EDM: Chief Complaint: BACK PAIN OR INJURY HPI: HPI: Patient is a 51 year old female who presented to ER for evaluation of low back pain. Patient has history of chronic back problem, patient was seen here on June 22 after she fell on the mud. X-ray her lumbar spine did not show any fracture or dislocation. Patient was prescribed Flexeril, she did not go and grape picker the medication because she says she is not afford to pay for it. Patient came back here today because of the pain. Patient denies any bowel bladder incontinence. Patient denies any weakness or numbness in her lower extremity. Review of Systems: Review of Systems: Constitutional: Denies fever or chills. [] Eyes: Denies change in visual acuity. [] HENT: Denies nasal congestion or sore throat. [] Respiratory: Denies cough or shortness of breath. [] Cardiovascular: Denies chest pain or edema. [] GI: Denies abdominal pain, nausea, vomiting, bloody stools or diarrhea. [] : Denies dysuria. [] Musculoskeletal: Positive for low back pain Integument: Denies rash. [] Neurologic: Denies headache, focal weakness or sensory changes. [] Endocrine: Denies polyuria or polydipsia. [] Lymphatic: Denies swollen glands. [] Psychiatric: Denies depression or anxiety. [] Heart Score: C/O Chest Pain: N/A Risk Factors: Risk Factors: DM, Current or recent (<one month) smoker, HTN, HLP, family history of CAD, obesity. Risk Scores: Score 0 - 3: 2.5% MACE over next 6 weeks - Discharge Home Score 4 - 6: 20.3% MACE over next 6 weeks - Admit for Clinical Observation Score 7 - 10: 72.7% MACE over next 6 weeks - Early Invasive Strategies Current Medications: Current Medications Medications (Trade) Dose Ordered Sig/Tim Start Time Stop Time Status Last Admin Dose Admin Ketorolac Tromethamine (Toradol Im) 60 mg 1X ONCE 06/25/21 20:00 06/25/21 20:01 UNV Allergies: Allergies: Allergies Coded Allergies Type Severity Reaction Last Updated Verified lisinopril Allergy Unknown 04/18/21 Yes Physical Exam: PE: Constitutional: Well developed, well nourished, no acute distress, non-toxic appearance. [] HENT: Normocephalic, atraumatic, bilateral external ears normal, oropharynx moist, no oral exudates, nose normal. [] Eyes: PERRLA, EOMI, conjunctiva normal, no discharge. [] Neck: Normal range of motion, no tenderness, supple, no stridor. [] Cardiovascular:Heart rate regular rhythm, no murmur [] Lungs & Thorax: Bilateral breath sounds clear to auscultation [] Abdomen: Bowel sounds normal, soft, no tenderness, no masses, no pulsatile ma sses. [] Skin: Warm, dry, no erythema, no rash. [] Back: There is no midline lumbar spine tenderness to palpation, no bony step- off. Extremities: No tenderness, no cyanosis, no clubbing, ROM intact, no edema. [] Neurologic: Alert and oriented X 3, normal motor function, normal sensory function, no focal deficits noted. [] Psychologic: Affect normal, judgement normal, mood normal. [] EKG: EKG: [] Radiology/Procedures: Radiology/Procedures: [] Course & Med Decision Making: Course & Med Decision Making Pertinent Labs and Imaging studies reviewed. (See chart for details) Dragon Disclaimer: Dragon Disclaimer: This electronic medical record was generated, in whole or in part, using a voice recognition dictation system. Departure Departure Impression: Primary Impression: Lower back pain Disposition: HOME / SELF CARE / HOMELESS Condition: STABLE Referrals: Chang CALI MD (PCP) follow up with your doctor this week. Patient Instructions: Back Pain, Adult Additional Instructions: Thank you for visiting our Emergency Department. We appreciate you trusting us with your care. If any additional problems come up don't hesitate to return to visit us. Please follow up with your primary care provider so they can plan additional care if needed and know about the problem that you had. If symptoms worsen come back to the Emergency Department. Any concerning symptoms that start such as chest pain, shortness of air, weakness or numbness on one side of the body, running high fevers or any other concerning symptoms return to the ER. Scripts Ibuprofen (Ibu) 800 Mg Tablet 1 TAB PO Q8HRS PRN for PAIN for 7 Days, #30 TAB 0 Refills Prov: MONY MIMS DO 06/25/21 Tramadol Hcl (TRAMADOL HCL) 50 Mg Tablet 50 MG PO Q6HRS PRN for PAIN, #15 TAB Prov: MONY MIMS DO 06/25/21 MNOY MIMS DO Jun 25, 2021 19:54
[2021-06-25] MEDS ORDERED: KETOROLAC 60 MG/2 ML VIAL. IM ONE (20:00)
[2021-06-25] MEDS ORDERED: IBUP-577 PO (20:02)
[2021-06-25] MEDS ORDERED: TRAM50TA PO (20:02)
== END 2021-06-25 20:35 | disposition home or self-care (01) ==
LOC: ER 17:25
DX: M54.50 Low back pain, unspecified (principal); E11.40 Type 2 diabetes mellitus with diabetic neuropathy, unspecified; E78.00 Pure hypercholesterolemia, unspecified; I10 Essential (primary) hypertension; F17.200 Nicotine dependence, unspecified, uncomplicated; Z95.5 Presence of coronary angioplasty implant and graft; Z90.89 Acquired absence of other organs; Z90.49 Acquired absence of other specified parts of digestive tract; Z90.710 Acquired absence of both cervix and uterus; Z88.6 Allergy status to analgesic agent
CPT/HCPCS: 96372; 99283; J1885

== ENCOUNTER 2021-08-05 12:16 | Emergency (ER) | payer MEDICARE, MEDICAID ==
[~2021-08-05] VITALS: Ht 180.3 cm; Wt 120.0 kg
[~2021-08-05 12:16] MED LIST changes: +IBUP-577 PO
[2021-08-05 12:28] VITALS: BP 187/88
--- NOTE | 2021-08-05 13:35 | PHYS DOC ---
Past Medical History Past Medical History: Diabetes-Type II, High Cholesterol, Hypertension Additional Past Medical Histor: NEUROPATHY, HAFSA Past Surgical History: Angioplasty, Appendectomy, Cholecystectomy, Hysterectomy Additional Past Surgical Histo: "STOMACH STENT", "LEG STENTS IN BOTH LEGS" Smoking Status: Current Every Day Smoker Alcohol Use: Rarely Drug Use: Marijuana General Adult EDM: Chief Complaint: TOE PROBLEM HPI: HPI: Patient is a 51 year old female with past medical history including diabetes type 2 with neuropathy who presents with laceration to her left great toe. Patient states that she noticed the wound over 2 weeks ago, but she is unsure how long before that the wound was present. She reports that her neuropathy has prevented her from having any pain associated with the wound. She denies fever, chills, weakness, purulent drainage, erythema. She has no other complaints at this time. Review of Systems: Review of Systems: ROS negative except as mentioned in HPI. Heart Score: C/O Chest Pain: No Allergies: Allergies: Allergies Coded Allergies Type Severity Reaction Last Updated Verified lisinopril Allergy Unknown 04/18/21 Yes Physical Exam: PE: Constitutional: Well developed, well nourished, no acute distress, non-toxic appearance. Cardiovascular: Heart rate regular rhythm, no murmur. Lungs & Thorax: Bilateral breath sounds clear to auscultation. Skin: Warm, dry, no erythema, no rash. Extremities: 7 mm laceration noted to distal aspect of left great toe without any active bleeding, drainage, surrounding erythema or maceration. Extremities otherwise no tenderness, no cyanosis, no clubbing, ROM intact, no edema. Neurologic: Alert and oriented x4, no focal deficits noted. Current Patient Data: Vital Signs: Vital Signs Date Time Temp Pulse Resp B/P (MAP) Pulse Ox O2 Delivery O2 Flow Rate FiO2 08/05/21 12:28 98.2 69 12 187/88 (121) 99 Room Air 98.2 Course & Med Decision Making: Course & Med Decision Making Pertinent Labs and Imaging studies reviewed. (See chart for details) Patient presents with a wound that is over 2 weeks old. Wound will not be closed secondary to risk of infection. Patient will be given contact information for the wound care associated with [facility]. She is advised to make an appointment at her earliest convenience for further evaluation and treatment. Patient is given return precautions for signs of infection or worsening/new symptoms. Patient understands and is agreeable to discharge plan. Dragon Disclaimer: Dragon Disclaimer: This electronic medical record was generated, in whole or in part, using a voice recognition dictation system. Departure Departure Impression: Primary Impression: Laceration without foreign body of left great toe without damage to nail, initial encounter Additional Impression: Type 2 diabetes mellitus with diabetic neuropathy Qualified Codes: E11.40 - Type 2 diabetes mellitus with diabetic neuropathy, unspecified Disposition: HOME / SELF CARE / HOMELESS Condition: STABLE Referrals: Chang CALI MD (PCP) Patient Instructions: Delayed Wound Closure, Wound Care, [id number] Additional Instructions: As discussed, because her laceration is over 6 hours old, it will not be closed to reduce risk of infection. You should call wound care clinic at your earliest convenience and schedule an appointment. Please return to the emergency department if your wound shows any signs of infection including redness and swelling around the wound, purulent discharge, or if you develop a fever. VIANEY DONIS Aug 05, 2021 13:35
== END 2021-08-05 13:42 | disposition home or self-care (01) ==
LOC: ER 12:16
DX: S91.112A Laceration without foreign body of left great toe without damage to nail, initial encounter (principal); E11.40 Type 2 diabetes mellitus with diabetic neuropathy, unspecified; I10 Essential (primary) hypertension; E78.00 Pure hypercholesterolemia, unspecified; F17.200 Nicotine dependence, unspecified, uncomplicated; Z95.5 Presence of coronary angioplasty implant and graft; Z95.1 Presence of aortocoronary bypass graft; Z88.6 Allergy status to analgesic agent; Y28.8XXA Contact with other sharp object, undetermined intent, initial encounter; Y93.89 Activity, other specified; Y92.89 Other specified places as the place of occurrence of the external cause; Y99.8 Other external cause status
CPT/HCPCS: 99281

== ENCOUNTER 2021-09-28 18:28 | Emergency (ER) | payer MEDICARE, MEDICAID ==
[~2021-09-28] VITALS: Ht 180.3 cm; Wt 128.0 kg
[2021-09-28 20:07] LABS: BASO # 0.2 x10^3/uL (0.0-0.2); BASO % 1 % (0-3); EOS # 0.1 x10^3/uL (0.0-0.7); EOS % 0 % (0-3); HEMATOCRIT 37.4 % (36.0-47.0); HEMOGLOBIN 11.9 g/dL (12.0-15.5); LYMPH # 4.3 x10^3/uL (1.0-4.8); LYMPH % 27 % (24-48); MEAN CORPUSCULAR HEMOGLOBIN 29 pg (25-35); MEAN CORPUSCULAR HGB CONC 32 g/dL (31-37); MEAN CORPUSCULAR VOLUME 90 fL (79-100); MONO % 7 % (0-9); NEUT # 10.2 x10^3/uL (1.8-7.7); NEUT % 65 % (31-73); PLATELET COUNT 256 x10^3/uL (140-400); RED BLOOD COUNT 4.15 x10^6/uL (3.50-5.40); RED CELL DISTRIBUTION WIDTH 15.4 % (11.5-14.5); WHITE BLOOD COUNT 15.8 x10^3/uL (4.0-11.0)
[2021-09-28 20:18] LABS: CALCIUM 8.4 mg/dL (8.5-10.1); GFR 70.5; POTASSIUM 3.8 mmol/L (3.5-5.1)
[2021-09-28 20:24] LABS: ALBUMIN 3.2 g/dL (3.4-5.0); ALBUMIN/GLOBULIN RATIO 0.9 (1.0-1.7); TOTAL BILIRUBIN 0.2 mg/dL (0.2-1.0); TOTAL PROTEIN 6.9 g/dL (6.4-8.2)
[2021-09-28] MEDS ORDERED: MORPHINE SULFATE 2 MG/ML INJ. IM ONE (21:30)
[2021-09-28 21:38] LABS: FECAL OB PT POSITIVE (NEG)
--- NOTE | 2021-09-28 22:21 | RAD ---
Exam: CT of abdomen and pelvis without contrast INDICATION: Abdominal pain, rectal pain TECHNIQUE: Sequential axial images through the abdomen and pelvis obtained without IV contrast. Sagit la nena and coronal reformatted images were reconstructed from the axial data and reviewed. Exposure: One or more of the following in the visualized dose reduction techniques were utilized for this examination: 1. Automated exposure control 2. Adjustment of the MA and/or KV according to patient size 3. Use of iterative of reconstructive technique Comparisons: None FINDINGS: Heart size is normal. No pericardial effusion. Visualized lung bases are clear. No pleural effusion. Evaluation of the solid organs is limited secondary to noncontrast technique. Liver, spleen, pancreas and adrenals are unremarkable. Gallbladder surgically absent. No perinephric inflammation or hydronephrosis. No renal or ureteral calculi are identified. Bladder is partially distended and not well evaluated. Uterus is absent. No abnormal adnexal mass. Diverticulosis noted at the sigmoid colon without evidence of acute diverticulitis. Remainder of the large and small bowel are unremarkable. No free intra-abdominal air or fluid. No obstruction. Abdominal aorta has a normal course and caliber. No enlarged intra-abdominal lymph nodes are identified. No suspicious osseous lesions or acute fractures. IMPRESSION: Diverticulosis without evidence of acute diverticulitis. Electronically signed by: Miguel Herndon MD (09/28/2021 10:18 PM) [facility]
[2021-09-28] MEDS ORDERED: TRAM-48 PO (22:44)
--- NOTE | 2021-09-28 22:45 | PHYS DOC ---
Past Medical History Past Medical History: Diabetes-Type II, High Cholesterol, Hypertension Additional Past Medical Histor: CHRONIC BACK PAIN/NEUROPHATHY Past Surgical History: Appendectomy, Cholecystectomy Additional Past Surgical Histo: "STOMACH STENT", "LEG STENTS IN BOTH LEGS" Smoking Status: Current Every Day Smoker Alcohol Use: Rarely Drug Use: Marijuana General Adult EDM: Chief Complaint: RECTAL BLEED HPI: HPI: Patient is a 51 year old female past medical history hypertension hyperlipidemia diabetes peripheral vascular disease on anticoagulation presents with a chief complaint of rectal bleeding. Patient states prior to arrival had single episode of rectal bleeding. Patient states she has associated rectal pain with some abdominal discomfort. Patient denies any associated nausea vomiting or chest pain. Patient states while in the department had another episode of rectal bleeding. Patient states today she had medicines for constipation and shortly after started to have diarrhea. During episode diarrhea is when patient noticed blood in stool. Review of Systems: Review of Systems: Constitutional: Denies fever or chills. [] Eyes: Denies change in visual acuity. [] HENT: Denies nasal congestion or sore throat. [] Respiratory: Denies cough or shortness of breath. [] Cardiovascular: Denies chest pain or edema. [] GI: Positive abdominal pain, nausea, vomiting, positive bloody stools Positive diarrhea. [] : Denies dysuria. [] Musculoskeletal: Denies back pain or joint pain. [] Integument: Denies rash. [] Neurologic: Denies headache, focal weakness or sensory changes. [] Endocrine: Denies polyuria or polydipsia. [] Lymphatic: Denies swollen glands. [] Psychiatric: Denies depression or anxiety. [] Heart Score: C/O Chest Pain: N/A Risk Factors: Risk Factors: DM, Current or recent (<one month) smoker, HTN, HLP, family history of CAD, obesity. Risk Scores: Score 0 - 3: 2.5% MACE over next 6 weeks - Discharge Home Score 4 - 6: 20.3% MACE over next 6 weeks - Admit for Clinical Observation Score 7 - 10: 72.7% MACE over next 6 weeks - Early Invasive Strategies Current Medications: Current Medications Medications (Trade) Dose Ordered Sig/Tim Start Time Stop Time Status Last Admin Dose Admin Morphine Sulfate (Morphine Sulfate) 2 mg 1X ONCE 09/28/21 21:30 09/28/21 21:31 DC 09/28/21 21:27 2 MG Allergies: Allergies: Allergies Coded Allergies Type Severity Reaction Last Updated Verified lisinopril Allergy Intermediate 09/28/21 Yes Physical Exam: PE: Constitutional: Well developed, well nourished, no acute distress, non-toxic appearance. [] HENT: Normocephalic, atraumatic, bilateral external ears normal, oropharynx moist, no oral exudates, nose normal. [] Eyes: PERRLA, EOMI, conjunctiva normal, no discharge. [] Neck: Normal range of motion, no tenderness, supple, no stridor. [] Cardiovascular:Heart rate regular rhythm, no murmur [] Lungs & Thorax: Bilateral breath sounds clear to auscultation [] Abdomen: Bowel sounds normal, soft, no tenderness, no masses, no pulsatile masses. [] Skin: Warm, dry, no erythema, no rash. [] Back: No tenderness, no CVA tenderness. [] Extremities: No tenderness, no cyanosis, no clubbing, ROM intact, no edema. [] Neurologic: Alert and oriented X 3, normal motor function, normal sensory function, no focal deficits noted. [] Psychologic: Affect normal, judgement normal, mood normal. [] Rectal-exam performed with nursing manufacturing technology analyst no anal fissures no gross blood hemorrhoid appears chronic 6 o'clock position no thrombosed hemorrhoids. Current Patient Data: Labs: Laboratory Tests Test 09/28/21 19:53 09/28/21 20:58 09/28/21 21:29 White Blood Count 15.8 x10^3/uL (4.0-11.0) H Red Blood Count 4.15 x10^6/uL (3.50-5.40) Hemoglobin 11.9 g/dL (12.0-15.5) L Hematocrit 37.4 % (36.0-47.0) Mean Corpuscular Volume 90 fL (79-100) Mean Corpuscular Hemoglobin 29 pg (25-35) Mean Corpuscular Hemoglobin Concent 32 g/dL (31-37) Red Cell Distribution Width 15.4 % (11.5-14.5) H Platelet Count 256 x10^3/uL (140-400) Neutrophils (%) (Auto) 65 % (31-73) Lymphocytes (%) (Auto) 27 % (24-48) Monocytes (%) (Auto) 7 % (0-9) Eosinophils (%) (Auto) 0 % (0-3) Basophils (%) (Auto) 1 % (0-3) Neutrophils # (Auto) 10.2 x10^3/uL (1.8-7.7) H Lymphocytes # (Auto) 4.3 x10^3/uL (1.0-4.8) Monocytes # (Auto) 1.0 x10^3/uL (0.0-1.1) Eosinophils # (Auto) 0.1 x10^3/uL (0.0-0.7) Basophils # (Auto) 0.2 x10^3/uL (0.0-0.2) Sodium Level 142 mmol/L (136-145) Potassium Level 3.8 mmol/L (3.5-5.1) Chloride Level 108 mmol/L (98-107) H Carbon Dioxide Level 26 mmol/L (21-32) Anion Gap 8 (6-14) Blood Urea Nitrogen 12 mg/dL (7-20) Creatinine 1.0 mg/dL (0.6-1.0) Estimated GFR (Cockcroft-Gault) 70.5 BUN/Creatinine Ratio 12 (6-20) Glucose Level 171 mg/dL (70-99) H Calcium Level 8.4 mg/dL (8.5-10.1) L Total Bilirubin 0.2 mg/dL (0.2-1.0) Aspartate Amino Transferase (AST) 10 U/L (15-37) L Alanine Aminotransferase (ALT) 24 U/L (14-59) Alkaline Phosphatase 79 U/L (46-116) Total Protein 6.9 g/dL (6.4-8.2) Albumin 3.2 g/dL (3.4-5.0) L Albumin/Globulin Ratio 0.9 (1.0-1.7) L POC Urine HCG, Qualitative Hcg negative (Negative) Stool Occult Blood Positive (NEG) Laboratory Tests 09/28/21 19:53 Laboratory Tests 09/28/21 19:53 Vital Signs: Vital Signs Date Time Temp Pulse Resp B/P (MAP) Pulse Ox O2 Delivery O2 Flow Rate FiO2 09/28/21 21:27 22 96 Room Air 09/28/21 19:34 98.3 80 192/87 (122) 98.3 EKG: EKG: [] Radiology/Procedures: Radiology/Procedures: [] Course & Med Decision Making: Course & Med Decision Making Pertinent Labs and Imaging studies reviewed. (See chart for details) [] Dragon Disclaimer: Dragon Disclaimer: This electronic medical record was generated, in whole or in part, using a voice recognition dictation system. Departure Departure Impression: Primary Impression: Rectal bleeding Additional Impression: Abdominal pain Disposition: HOME / SELF CARE / HOMELESS Condition: STABLE Referrals: Chang CALI MD (PCP) Patient Instructions: Abdominal Pain (Nonspecific), Rectal Bleeding Scripts Tramadol Hcl (ULTRAM) 50 Mg Tablet 1 TAB PO PRN Q6HRS PRN for pain MDD 4 Tablet(s) for 7 Days, #28 TAB 0 Refills Prov: ALMA CORONA DO 09/28/21 ALMA CORONA DO Sep 28, 2021 22:45
[2021-09-28 22:52] VITALS: BP 170/73
--- NOTE | 2021-09-29 01:46 | EKG ---
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
[2021-10-01] MEDS ORDERED: BUPR150T21 PO (10:03)
== END 2021-09-28 23:10 | disposition home or self-care (01) ==
LOC: ER 18:28
DX: K62.5 Hemorrhage of anus and rectum (principal); E11.51 Type 2 diabetes mellitus with diabetic peripheral angiopathy without gangrene; E78.5 Hyperlipidemia, unspecified; E78.00 Pure hypercholesterolemia, unspecified; I10 Essential (primary) hypertension; G89.29 Other chronic pain; Z90.89 Acquired absence of other organs; Z90.49 Acquired absence of other specified parts of digestive tract; Z95.5 Presence of coronary angioplasty implant and graft; F17.200 Nicotine dependence, unspecified, uncomplicated
CPT/HCPCS: 36415; 74176; 80053; 81025; 82274; 85025; 93005; 96372; 99285; J2270

== ENCOUNTER → 2021-10-01 | Outpatient (CLI) | payer MEDICARE, MEDICAID ==
[2021-10-01] VITALS (12 sets, daily range): BP systolic 170–199; BP diastolic 78–109
[~2021-10-01] VITALS: Ht 180.3 cm; Wt 128.2 kg
[~2021-10-01] MED LIST changes: +BUPR150T21 PO; +CEPH500T PO; +CONTRAST GIVEN. MC PRN; +HEPARIN for ARTERIAL LINE 1,500 ML ONE; +HEPARIN for IV BOLUS 10,000 UNIT/10 ML VIAL. IART ONE; +HEPARIN for IV BOLUS 10,000 UNIT/10 ML VIAL. ONE; +IODIXANOL 320 MG/ML 100 ML VIAL. IART ONE; +IODIXANOL 320 MG/ML 100 ML VIAL. ONE; +LIDOCAINE WITH 8.4% SOD BICARB 3 ML DISP.SYRIN. IJ ONE; +LIDOCAINE WITH 8.4% SOD BICARB 3 ML DISP.SYRIN. ONE; +MIDAZOLAM HCL/PF 2 MG/2 ML VIAL. IV ONE; +MIDAZOLAM HCL/PF 2 MG/2 ML VIAL. ONE; +NITROGLYCERIN 200 MCG/2 ML SYRINGE FOR CATH/VASC LAB. IART ONE; +NITROGLYCERIN 200 MCG/2 ML SYRINGE FOR CATH/VASC LAB. ONE; +VERAPAMIL 5 MG/2 ML VIAL. IART ONE; +VERAPAMIL 5 MG/2 ML VIAL. ONE; +fentaNYL PF VIAL 100 MCG/2 ML VIAL IV ONE; +fentaNYL PF VIAL 100 MCG/2 ML VIAL ONE; +hydrALAZINE 20 MG/ML VIAL. IVP ONE; +hydrALAZINE 20 MG/ML VIAL. ONE
[2021-10-01 10:19] LABS: PROTHROMBIN TIME PATIENT 12.2 SEC (11.7-14.0)
--- NOTE | 2021-10-01 14:48 | RAD ---
10/01/2021 1. Pelvic angiography 2. Bilateral lower extremity angiography 3. Angioplasty of the left superficial femoral artery 4. Angioplasty of the right superficial femoral artery INDICATION: Persistent bilateral leg pain. Severe peripheral vascular disease history of bilateral SF A intervention. Initially following intervention pain had improved, but hasn't recurred. Consent: The procedure was explained in its entirety to the patient or the patients designated repres entative by a member of the treatment team, including a discussion of the risks, benefits and commonl y accepted alternatives to the procedure, as well as the expected consequences of no therapy whatsoev er. Discussion of the risks included, but was not limited to, those that are most frequent and thos e that are rare but possibly severe or life-threatening, as well as the possibility of unforeseen com plications. Procedural detail : Ultrasound evaluation demonstrates the right radial artery be patent. The modifie d Dave's test was performed which was normal. The right wrist was prepped and draped using maximal s terile barrier technique. 1% lidocaine was administered for local anesthesia. The right radial artery was accessed using micropuncture technique under direct ultrasound guidance. Reference ultrasound im ages were saved medical record. A 5 Romanian sheath was placed. A catheter was advanced into the inferior abdominal aorta. Pelvic angiograms were obtained demonstrat ing no hemodynamically significant aortoiliac disease. Catheter was repositioned in the left common femoral artery. Angiograms were performed demonstrating no hemodynamically significant stenosis left common femoral artery profunda artery. Catheter was repo sitioned in the proximal left SFA. Angiograms were obtained demonstrating near occlusion of the dista l most left SFA. The ijiki-[id number]-mqko popliteal artery is patent. All 3 runoff vessels are patent on th e left. The lesion was traversed angioplasty performed with a 5 x 100 mm balloon. This resulted in si gnificantly improved morphology and flow. Catheter was then repositioned in the right common femoral artery. Right lower extremity angiograms w ere obtained demonstrating focal 8% stenosis of the distal right SFA. This was treated with balloon a ngioplasty with a 5 x 100 mm balloon again yielding improved morphology and flow. The catheter and wires were removed. A TR band was placed to achieve hemostasis. No immediate compli cations were identified. Total fluoroscopy time: 13 min Dose area product 237 Gycm2 Sedation: The procedure was performed under conscious sedation including continuous cardiopulmonary m onitoring via a dedicated sedation nurse. [id number] sedation time:90 min Impression: Recurrent hemodynamically significant stenoses involving the bilateral superficial femora l artery treated with balloon angioplasty as described. Electronically signed by: Danny Bran MD (10/01/2021 2:45 PM) [id number]
--- NOTE | 2021-10-01 16:07 | NUR ---
Discharge Note: SABAS YORK Discharge instructions and discharge home medications reviewed with Patient and a copy given. All questions have been answered and understanding verbalized. The following instructions and handouts were given: Moderate Sedation and Radial site care Discontinued lines and drains: Left FA IV dc'd, tip intact, bandage applied. Patient discharged to home with [place] via [facility].
--- NOTE | 2021-10-03 10:27 | RAD ---
10/01/2021 1. Pelvic angiography 2. Bilateral lower extremity angiography 3. Angioplasty of the left superficial femoral artery 4. Angioplasty of the right superficial femoral artery INDICATION: Persistent bilateral leg pain. Severe peripheral vascular disease history of bilateral SF A intervention. Initially following intervention pain had improved, but hasn't recurred. Consent: The procedure was explained in its entirety to the patient or the patients designated repres entative by a member of the treatment team, including a discussion of the risks, benefits and commonl y accepted alternatives to the procedure, as well as the expected consequences of no therapy whatsoev er. Discussion of the risks included, but was not limited to, those that are most frequent and thos e that are rare but possibly severe or life-threatening, as well as the possibility of unforeseen com plications. Procedural detail : Ultrasound evaluation demonstrates the right radial artery be patent. The modifie d Dave's test was performed which was normal. The right wrist was prepped and draped using maximal s terile barrier technique. 1% lidocaine was administered for local anesthesia. The right radial artery was accessed using micropuncture technique under direct ultrasound guidance. Reference ultrasound im ages were saved medical record. A 5 [place] Islander sheath was placed. A catheter was advanced into the inferior abdominal aorta. Pelvic angiograms were obtained demonstrat ing no hemodynamically significant aortoiliac disease. Catheter was repositioned in the left common femoral artery. Angiograms were performed demonstrating no hemodynamically significant stenosis left common femoral artery profunda artery. Catheter was repo sitioned in the proximal left SFA. Angiograms were obtained demonstrating near occlusion of the dista l most left SFA. The [id number]-zak-krbm popliteal artery is patent. All 3 runoff vessels are patent on th e left. The lesion was traversed angioplasty performed with a 5 x 100 mm balloon. This resulted in si gnificantly improved morphology and flow. Catheter was then repositioned in the right common femoral artery. Right lower extremity angiograms w ere obtained demonstrating focal 8% stenosis of the distal right SFA. This was treated with balloon a ngioplasty with a 5 x 100 mm balloon again yielding improved morphology and flow. The catheter and wires were removed. A TR band was placed to achieve hemostasis. No immediate compli cations were identified. Total fluoroscopy time: 13 min Dose area product 237 Gycm2 Sedation: The procedure was performed under conscious sedation including continuous cardiopulmonary m onitoring via a dedicated sedation nurse. [id number] sedation time:90 min Impression: Recurrent hemodynamically significant stenoses involving the bilateral superficial femora l artery treated with balloon angioplasty as described. Electronically signed by: Danny Bran MD (10/03/2021 10:25 AM) [id number]
== END | disposition home or self-care (01) ==
LOC: INTRAD 08:18
PROVIDERS: ATTEND Family Medicine
DX: I73.9 Peripheral vascular disease, unspecified (principal); I10 Essential (primary) hypertension; E11.9 Type 2 diabetes mellitus without complications; K21.9 Gastro-esophageal reflux disease without esophagitis; M19.90 Unspecified osteoarthritis, unspecified site; F41.9 Anxiety disorder, unspecified; F32.9 Major depressive disorder, single episode, unspecified; Z90.49 Acquired absence of other specified parts of digestive tract; Z98.890 Other specified postprocedural states; Z79.82 Long term (current) use of aspirin; Z79.84 Long term (current) use of oral hypoglycemic drugs; Z79.899 Other long term (current) drug therapy; Z88.8 Allergy status to other drugs, medicaments and biological substances
CPT/HCPCS: 36415; 37224; 75625; 75716; 76937; 85610; 99152; 99153; C1725; C1769; C1894; J0360; J1644; J2250; J3010; J3490; Q9967

== ENCOUNTER 2021-10-09 17:17 | Emergency (ER) | payer MEDICARE, MEDICAID ==
[~2021-10-09] VITALS: Ht 180.3 cm; Wt 125.0 kg
[~2021-10-09 17:17] MED LIST changes: -CEPH500T PO; -CONTRAST GIVEN. MC PRN; -HEPARIN for ARTERIAL LINE 1,500 ML ONE; -HEPARIN for IV BOLUS 10,000 UNIT/10 ML VIAL. IART ONE; -HEPARIN for IV BOLUS 10,000 UNIT/10 ML VIAL. ONE; -IODIXANOL 320 MG/ML 100 ML VIAL. IART ONE; -IODIXANOL 320 MG/ML 100 ML VIAL. ONE; -LIDOCAINE WITH 8.4% SOD BICARB 3 ML DISP.SYRIN. IJ ONE; -LIDOCAINE WITH 8.4% SOD BICARB 3 ML DISP.SYRIN. ONE; -MIDAZOLAM HCL/PF 2 MG/2 ML VIAL. IV ONE; -MIDAZOLAM HCL/PF 2 MG/2 ML VIAL. ONE; -NITROGLYCERIN 200 MCG/2 ML SYRINGE FOR CATH/VASC LAB. IART ONE; -NITROGLYCERIN 200 MCG/2 ML SYRINGE FOR CATH/VASC LAB. ONE; -VERAPAMIL 5 MG/2 ML VIAL. IART ONE; -VERAPAMIL 5 MG/2 ML VIAL. ONE; -fentaNYL PF VIAL 100 MCG/2 ML VIAL IV ONE; -fentaNYL PF VIAL 100 MCG/2 ML VIAL ONE; -hydrALAZINE 20 MG/ML VIAL. IVP ONE; -hydrALAZINE 20 MG/ML VIAL. ONE
[2021-10-09 18:13] LABS: BASO # 0.2 x10^3/uL (0.0-0.2); BASO % 2 % (0-3); EOS # 0.1 x10^3/uL (0.0-0.7); EOS % 1 % (0-3); HEMATOCRIT 38.8 % (36.0-47.0); HEMOGLOBIN 12.4 g/dL (12.0-15.5); LYMPH # 3.2 x10^3/uL (1.0-4.8); LYMPH % 24 % (24-48); MEAN CORPUSCULAR HEMOGLOBIN 29 pg (25-35); MEAN CORPUSCULAR HGB CONC 32 g/dL (31-37); MEAN CORPUSCULAR VOLUME 91 fL (79-100); MONO # 0.8 x10^3/uL (0.0-1.1); MONO % 6 % (0-9); NEUT # 9.1 x10^3/uL (1.8-7.7); NEUT % 68 % (31-73); PLATELET COUNT 320 x10^3/uL (140-400); RED BLOOD COUNT 4.27 x10^6/uL (3.50-5.40); RED CELL DISTRIBUTION WIDTH 15.3 % (11.5-14.5); WHITE BLOOD COUNT 13.4 x10^3/uL (4.0-11.0)
[2021-10-09 18:30] LABS: CALCIUM 8.9 mg/dL (8.5-10.1); CREATININE 1.1 mg/dL (0.6-1.0); GFR 63.1; POTASSIUM 4.6 mmol/L (3.5-5.1)
--- NOTE | 2021-10-09 18:33 | RAD ---
INDICATION: Reason: BLE swelling / Spl. Instructions: / History: COMPARISON: None. TECHNIQUE: Grayscale, color and doppler ultrasound images were obtained of the bilateral lower extrem ity venous vasculature. RIGHT: No thrombus identified in the common femoral vein, femoral vein, popliteal vein or visualized calf ve ins. LEFT: No thrombus identified in the common femoral vein, femoral vein, popliteal vein or visualized calf ve ins. IMPRESSION: * No thrombus identified in deep venous system of bilateral lower extremities. Electronically signed by: Dom Calderon MD (10/09/2021 6:30 PM) [id number]
[2021-10-09 18:36] LABS: ALBUMIN 3.4 g/dL (3.4-5.0); ALBUMIN/GLOBULIN RATIO 0.8 (1.0-1.7); TOTAL BILIRUBIN 0.3 mg/dL (0.2-1.0); TOTAL PROTEIN 7.6 g/dL (6.4-8.2)
[2021-10-09 18:51] LABS: BILIRUBIN,URINE NEGATIVE (NEG); CLARITY,URINE CLEAR; COLOR,URINE YELLOW; NITRITE,URINE POSITIVE (NEG); PROTEIN,URINE NEGATIVE (NEG-TRACE); UROBILINOGEN,URINE 0.2 mg/dL (0.2 mg/dL)
[2021-10-09 18:57] LABS: BARBITURATES NEG (NEG); BENZODIAZEPINES NEG (NEG); CANNABINOIDS NEG (NEG); COCAINE NEG (NEG); METHADONE NEG (NEG); OPIATES NEG (NEG); PHENCYCLIDINE NEG (NEG)
[2021-10-09] MEDS ORDERED: HYDROcodone/APAP 5/325MG 1 TAB TABLET PO ONE (19:00)
[2021-10-09 19:02] LABS: AMPHETAMINE/METHAMPHETAMINE NEG (NEG)
--- NOTE | 2021-10-09 19:09 | RAD ---
EXAM: XR CHEST 1V 10/09/2021 5:43 PM CLINICAL INDICATION: Bilateral lower extremity swelling COMPARISON: None TECHNIQUE: AP upright view the chest FINDINGS: The heart is at the upper limit of normal in size. There is mild linear atelectasis in the right perihilar region. No consolidation, pleural effusion, or pneumothorax. IMPRESSION: No acute cardiopulmonary abnormality. Electronically signed by: Johanny Issa MD (10/09/2021 7:06 PM) [id number]
[2021-10-09 19:12] LABS: BACTERIA,URINE MODERATE /HPF (0-FEW)
--- NOTE | 2021-10-09 19:43 | PHYS DOC ---
Past Medical History Past Medical History: Diabetes-Type II, High Cholesterol, Hypertension Additional Past Medical Histor: CHRONIC BACK PAIN/NEUROPHATHY Past Surgical History: Other Additional Past Surgical Histo: "STOMACH STENT", "LEG STENTS IN BOTH LEGS" Smoking Status: Never Smoker Alcohol Use: None Drug Use: Marijuana General Adult EDM: Chief Complaint: LOWER EXTREMITY EDEMA HPI: HPI: Patient is a 51 year old female with a history of diabetes type 2, hypertension, high cholesterol, presenting to the ED today complaining of 10 out of 10 bilateral groin pain, lower extremity pain, lower extremity swelling, symptoms began 4 days ago, patient describes the pain as sharp and constant, denies anything specifically exacerbating or relieving the pain. Patient states she had an arteriogram done on October 01, 2021. Denies any chest pain, short ness of breath. She states she follows up with Dr. Mendoza and was sent to the ED for DVT work-up. Patient herself is begging for pain medicine. Patient states she has chronic bilateral low back pain. Denies any trauma. Review of Systems: Review of Systems: Constitutional: Denies fever or chills. [] Eyes: Denies change in visual acuity. [] HENT: Denies nasal congestion or sore throat. [] Respiratory: Denies cough or shortness of breath. [] Cardiovascular: Denies chest pain or edema. [] GI: Denies abdominal pain, nausea, vomiting, bloody stools or diarrhea. [] : Denies dysuria. [] Musculoskeletal: Reports bilateral lower extremity pain and swelling. Reports chronic low back pain. Integument: Denies rash. [] Neurologic: Denies headache, focal weakness or sensory changes. [] Endocrine: Denies polyuria or polydipsia. [] Lymphatic: Denies swollen glands. [] Psychiatric: Denies depression or anxiety. [] Heart Score: C/O Chest Pain: N/A Risk Factors: Risk Factors: DM, Current or recent (<one month) smoker, HTN, HLP, family history of CAD, obesity. Risk Scores: Score 0 - 3: 2.5% MACE over next 6 weeks - Discharge Home Score 4 - 6: 20.3% MACE over next 6 weeks - Admit for Clinical Observation Score 7 - 10: 72.7% MACE over next 6 weeks - Early Invasive Strategies Current Medications: Current Medications Medications (Trade) Dose Ordered Sig/Tim Start Time Stop Time Status Last Admin Dose Admin Acetaminophen/ Hydrocodone Bitart (Lortab 5/325) 1 tab 1X ONCE 10/09/21 19:00 10/09/21 19:01 DC 10/09/21 19:11 1 TAB Allergies: Allergies: Allergies Coded Allergies Type Severity Reaction Last Updated Verified lisinopril Allergy Intermediate 10/09/21 Yes Physical Exam: PE: Constitutional: Overweight patient. Well developed, well nourished, no acute distress, non-toxic appearance. [] HENT: Normocephalic, atraumatic, bilateral external ears normal, oropharynx moist, no oral exudates, nose normal. [] Eyes: PERRLA, EOMI, conjunctiva normal, no discharge. [] Neck: Normal range of motion, no tenderness, supple, no stridor. [] Cardiovascular:Heart rate regular rhythm, no murmur [] Lungs & Thorax: Bilateral breath sounds clear to auscultation [] Abdomen: Bowel sounds normal, soft, no tenderness, no masses, no pulsatile masses. [] Skin: Warm, dry, no erythema, no rash. [] Back: No tenderness, no CVA tenderness. [] Extremities: No tenderness, no cyanosis, no clubbing, ROM intact, trace edema noted to bilateral ankles Neurologic: Alert and oriented X 3, normal motor function, normal sensory function, no focal deficits noted. [] Psychologic: Affect normal, judgement normal, mood normal. [] Current Patient Data: Labs: Laboratory Tests Test 10/09/21 17:41 10/09/21 18:02 10/09/21 18:38 Urine Opiates Screen Neg (NEG) Urine Methadone Screen Neg (NEG) Urine Barbiturates Neg (NEG) Urine Phencyclidine Screen Neg (NEG) Urine Amphetamine/Methamphetamine Neg (NEG) Urine Benzodiazepines Screen Neg (NEG) Urine Cocaine Screen Neg (NEG) Urine Cannabinoids Screen Neg (NEG) Urine Ethyl Alcohol Neg (NEG) White Blood Count 13.4 x10^3/uL (4.0-11.0) H Red Blood Count 4.27 x10^6/uL (3.50-5.40) Hemoglobin 12.4 g/dL (12.0-15.5) Hematocrit 38.8 % (36.0-47.0) Mean Corpuscular Volume 91 fL (79-100) Mean Corpuscular Hemoglobin 29 pg (25-35) Mean Corpuscular Hemoglobin Concent 32 g/dL (31-37) Red Cell Distribution Width 15.3 % (11.5-14.5) H Platelet Count 320 x10^3/uL (140-400) Neutrophils (%) (Auto) 68 % (31-73) Lymphocytes (%) (Auto) 24 % (24-48) Monocytes (%) (Auto) 6 % (0-9) Eosinophils (%) (Auto) 1 % (0-3) Basophils (%) (Auto) 2 % (0-3) Neutrophils # (Auto) 9.1 x10^3/uL (1.8-7.7) H Lymphocytes # (Auto) 3.2 x10^3/uL (1.0-4.8) Monocytes # (Auto) 0.8 x10^3/uL (0.0-1.1) Eosinophils # (Auto) 0.1 x10^3/uL (0.0-0.7) Basophils # (Auto) 0.2 x10^3/uL (0.0-0.2) Sodium Level 144 mmol/L (136-145) Potassium Level 4.6 mmol/L (3.5-5.1) Chloride Level 105 mmol/L (98-107) Carbon Dioxide Level 29 mmol/L (21-32) Anion Gap 10 (6-14) Blood Urea Nitrogen 15 mg/dL (7-20) Creatinine 1.1 mg/dL (0.6-1.0) H Estimated GFR (Cockcroft-Gault) 63.1 BUN/Creatinine Ratio 14 (6-20) Glucose Level 96 mg/dL (70-99) Calcium Level 8.9 mg/dL (8.5-10.1) Total Bilirubin 0.3 mg/dL (0.2-1.0) Aspartate Amino Transferase (AST) 18 U/L (15-37) Alanine Aminotransferase (ALT) 25 U/L (14-59) Alkaline Phosphatase 91 U/L (46-116) BT-Nxm-W-Type Natriuretic Peptide 416 pg/mL (0-124) H Total Protein 7.6 g/dL (6.4-8.2) Albumin 3.4 g/dL (3.4-5.0) Albumin/Globulin Ratio 0.8 (1.0-1.7) L Urine Collection Type Unknown Urine Color Yellow Urine Clarity Clear Urine pH 6.0 (<5.0-8.0) Urine Specific [place] 1.015 (1.000-1.030) Urine Protein Negative mg/dL (NEG-TRACE) Urine Glucose (UA) Negative mg/dL (NEG) Urine Ketones (Stick) Negative mg/dL (NEG) Urine Blood Negative (NEG) Urine Nitrite Positive (NEG) Urine Bilirubin Negative (NEG) Urine Urobilinogen Dipstick 0.2 mg/dL (0.2 mg/dL) Urine Leukocyte Esterase Small (NEG) Urine RBC 1-2 /HPF (0-2) Urine WBC 5-10 /HPF (0-4) Urine Squamous Epithelial Cells Few /LPF Urine Bacteria Moderate /HPF (0-FEW) Laboratory Tests 10/09/21 18:02 Laboratory Tests 10/09/21 18:02 Vital Signs: Vital Signs Date Time Temp Pulse Resp B/P (MAP) Pulse Ox O2 Delivery O2 Flow Rate FiO2 10/09/21 19:11 20 10/09/21 18:44 91 186/84 (118) 98 10/09/21 17:21 98.3 98.3 EKG: EK interpreted by Dr. Mitchell sinus rhythm heart rate 71 no STEMI [] Radiology/Procedures: Radiology/Procedures: []PROCEDURE: VENOUS LOWER EXT BILATERAL INDICATION: Reason: BLE swelling / Spl. Instructions: / History: COMPARISON: None. TECHNIQUE: Grayscale, color and doppler ultrasound images were obtained of the bilateral lower extremity venous vasculature. RIGHT: No thrombus identified in the common femoral vein, femoral vein, popliteal vein or visualized calf veins. LEFT: No thrombus identified in the common femoral vein, femoral vein, popliteal vein or visualized calf veins. IMPRESSION: * No thrombus identified in deep venous system of bilateral lower extremities. Electronically signed by: Tyrone Camejo MD (10/09/2021 6:30 PM) [id number] DICTATED and SIGNED BY: TYRONE CAMEJO MD DATE: 10/09/21 [id number] PROCEDURE: PORTABLE CHEST 1V EXAM: XR CHEST 1V 10/09/2021 5:43 PM CLINICAL INDICATION: Bilateral lower extremity swelling COMPARISON: None TECHNIQUE: AP upright view the chest FINDINGS: The heart is at the upper limit of normal in size. There is mild linear atelectasis in the right perihilar region. No consolidation, pleural effusion, or pneumothorax. IMPRESSION: No acute cardiopulmonary abnormality. Electronically signed by: Johanny Issa MD (10/09/2021 7:06 PM) [id number] DICTATED and SIGNED BY: JOHANNY ISSA MD DATE: 10/09/21 [id number] Course & Med Decision Making: Course & Med Decision Making Pertinent Labs and Imaging studies reviewed. (See chart for details) This is a 51-year-old female patient presented to the ED today complaining of bilateral lower extremity pain and swelling, symptoms began 4 days ago. She had an arteriogram done through the right wrist 1 week ago. EKG is negative, CBC with a WBC of 13.4, CMP with no acute findings, BNP 419. UA positive for UTI-discharged on cephalexin Venous Doppler of bilateral lower extremities are negative for any acute findings, chest x-ray is negative. Patient was reassured, discharged home. Dragon Disclaimer: DragSecret Space Disclaimer: This electronic medical record was generated, in whole or in part, using a voice recognition dictation system. Departure Departure Impression: Primary Impression: Lower extremity pain, bilateral Additional Impression: UTI (urinary tract infection) Qualified Codes: N39.0 - Urinary tract infection, site not specified Disposition: HOME / SELF CARE / HOMELESS Condition: STABLE Referrals: Chang MENDOZA MD (PCP) follow up next week Patient Instructions: Musculoskeletal Pain, Urinary Tract Infection Additional Instructions: You were seen for bilateral lower extremities pain. Your ultrasound of bilateral lower extremities were negative for blood clots. Your lab work was negative for any acute findings, you are noted to have UTI. Prescription for antibiotics was sent to your pharmacy. Scripts Tramadol Hcl (TRAMADOL HCL) 50 Mg Tablet 50 MG PO DAILY PRN for PAIN, #20 TAB 0 Refills Prov: BECKA NUÑEZ TEXTILE BROKER 10/09/21 Cephalexin (CEPHALEXIN) 500 Mg Tablet 1 TAB PO BID, #14 TAB Prov: BECKA NUÑEZ APRN 10/09/21 BECKA NUÑEZ APRN Oct 09, 2021 19:43
[2021-10-09] MEDS ORDERED: CEPH500T PO (19:47)
[2021-10-09] MEDS ORDERED: TRAM50TA PO ×2 (19:47→19:49)
[2021-10-09 20:00] VITALS: BP 186/79
--- NOTE | 2021-10-10 03:48 | EKG ---
[facility] [address] [place] [address] Test Date: 2021-10-09 Test Time: 18:44:18 Pat Name: SABAS YORK Department: Room: Gender: F Transformation Consultant: : 1970 Requested By: BECKA NUÑEZ Order Number: [id number] Reading MD: Sinna Brownlee Measurements Intervals [place] Rate: 71 P: 39 WV: 158 QRS: 41 QRSD: 88 T: 41 QT: 420 QTc: 457 Interpretive Statements SINUS RHYTHM Electronically Signed On 10-10-2021 19:59:43 SLEEVE SEWER by Sinan Brownlee
== END 2021-10-09 20:14 | disposition home or self-care (01) ==
LOC: ER 17:17
DX: N39.0 Urinary tract infection, site not specified (principal); M79.604 Pain in right leg; M79.605 Pain in left leg; E78.00 Pure hypercholesterolemia, unspecified; I10 Essential (primary) hypertension; E11.40 Type 2 diabetes mellitus with diabetic neuropathy, unspecified; G89.29 Other chronic pain; Z88.6 Allergy status to analgesic agent
CPT/HCPCS: 36415; 71045; 80053; 80307; 81001; 83880; 85025; 87077; 87086; 87186; 93005; 93970; 99285-25

== ENCOUNTER 2021-12-17 16:55 | Inpatient (IN) | payer MEDICARE, MEDICAID ==
[~2021-12-17] VITALS: Ht 180.3 cm; Wt 122.9 kg
[~2021-12-17 16:55] MED LIST changes: +CEPH500T PO
--- NOTE | 2021-12-17 17:17 | PHYS DOC ---
Past Medical History Past Medical History: Diabetes-Type II, High Cholesterol, Hypertension Additional Past Medical Histor: CHRONIC BACK PAIN/NEUROPHATHY Past Surgical History: Other Additional Past Surgical Histo: "STOMACH STENT", "LEG STENTS IN BOTH LEGS" Smoking Status: Never Smoker Alcohol Use: None Drug Use: Marijuana General Adult EDM: Chief Complaint: NAUSEA/VOMITING/DIARRHEA HPI: HPI: Patient is a 51-year-old female that presents today with nausea and vomiting and abdominal pain. Patient states that the symptoms have been ongoing for the last 4 weeks, she was seeing her primary care physician Dr. Mendoaz today in the office and they sent her here and to the emergency department via EMS services for further evaluation and treatment of her concerns today. Patient states that over the last 4 weeks she has had increased nausea and vomiting and abdominal pain she states that abdominal pain is located in her upper abdomen area she said that every time she eats or drinks anything she feels sick to her stomach, she states that with her symptoms she has been unable to take any of her primary care physician medications and she has not been taking any of her insulin for her diabetes because she has not been eating regularly. Patient also states she is very emotional today and highly anxious due to the fact that she has not been able to take any of her antidepressants or antianxiety medications as well. Patient does have a past medical history of diabetes, stroke, hypertension, depression and anxiety. Patient states that she does not follow with a gastrointestinal specialist on a regular basis for evaluation of any abdominal issues. Review of Systems: Review of Systems: Constitutional: Denies fever or chills. [] Eyes: Denies change in visual acuity. [] HENT: Denies nasal congestion or sore throat. [] Respiratory: Denies cough or shortness of breath. [] Cardiovascular: Denies chest pain or edema. [] GI: abdominal pain, nausea, vomiting, DENIES bloody stools or diarrhea. [] : Denies dysuria. [] Musculoskeletal: Denies back pain or joint pain. [] Integument: Denies rash. [] Neurologic: Denies headache, focal weakness or sensory changes. [] Endocrine: Denies polyuria or polydipsia. [] Lymphatic: Denies swollen glands. [] Psychiatric: anxiety. [] Heart Score: C/O Chest Pain: No Risk Factors: Risk Factors: DM, Current or recent (<one month) smoker, HTN, HLP, family history of CAD, obesity. Risk Scores: Score 0 - 3: 2.5% MACE over next 6 weeks - Discharge Home Score 4 - 6: 20.3% MACE over next 6 weeks - Admit for Clinical Observation Score 7 - 10: 72.7% MACE over next 6 weeks - Early Invasive Strategies Allergies: Allergies: Allergies Coded Allergies Type Severity Reaction Last Updated Verified lisinopril Allergy Intermediate 10/09/21 Yes Physical Exam: PE: Constitutional: Well developed, well nourished, MILD distress, non-toxic appearance. [] HENT: Normocephalic, atraumatic, bilateral external ears normal, oropharynx DRY, no oral exudates, nose normal. [] Eyes: PERRLA, EOMI, conjunctiva normal, no discharge. [] Neck: Normal range of motion, no tenderness, supple, no stridor. [] Cardiovascular:Heart rate regular rhythm, no murmur [] Lungs & Thorax: Bilateral breath sounds clear to auscultation [] Abdomen: Bowel sounds normal, soft, tenderness in the upper abdomen, no masses, no pulsatile masses. [] Skin: Warm, dry, no erythema, no rash. [] Back: No tenderness, no CVA tenderness. [] Extremities: No tenderness, no cyanosis, no clubbing, ROM intact, no edema. [] Neurologic: Alert and oriented X 3, normal motor function, normal sensory function, no focal deficits noted. [] Psychologic: Affect normal, judgement normal, mood ANXIETY. [] Current Patient Data: Labs: Laboratory Tests Test 12/17/21 17:40 12/17/21 20:09 White Blood Count 13.2 x10^3/uL Red Blood Count 4.53 x10^6/uL Hemoglobin 13.5 g/dL Hematocrit 40.4 % Mean Corpuscular Volume 89 fL Mean Corpuscular Hemoglobin 30 pg Mean Corpuscular Hemoglobin Concent 33 g/dL Red Cell Distribution Width 14.8 % Platelet Count 270 x10^3/uL Neutrophils (%) (Auto) 70 % Lymphocytes (%) (Auto) 23 % Monocytes (%) (Auto) 6 % Eosinophils (%) (Auto) 0 % Basophils (%) (Auto) 1 % Neutrophils # (Auto) 9.3 x10^3/uL Lymphocytes # (Auto) 3.0 x10^3/uL Monocytes # (Auto) 0.8 x10^3/uL Eosinophils # (Auto) 0.0 x10^3/uL Basophils # (Auto) 0.1 x10^3/uL Sodium Level 136 mmol/L Potassium Level 3.7 mmol/L Chloride Level 101 mmol/L Carbon Dioxide Level 25 mmol/L Anion Gap 10 Blood Urea Nitrogen 9 mg/dL Creatinine 1.0 mg/dL Estimated GFR (Cockcroft-Gault) 70.5 BUN/Creatinine Ratio 9 Glucose Level 340 mg/dL Lactic Acid Level 2.7 mmol/L Calcium Level 8.7 mg/dL Total Bilirubin 0.4 mg/dL Aspartate Amino Transf (AST/SGOT) 19 U/L Alanine Aminotransferase (ALT/SGPT) 25 U/L Alkaline Phosphatase 101 U/L Total Protein 7.6 g/dL Albumin 3.2 g/dL Albumin/Globulin Ratio 0.7 Lipase 28 U/L Urine Collection Type Unknown Urine Color (Auto) Light yellow Urine Turbidity Clear Urine pH (Auto) 6.0 Urine Specific [place] >1.050 Urine Protein (Auto) Negative mg/dL Urine Glucose (Auto)(UA) >=1000 mg/dL Urine Ketones (Auto) Negative mg/dL Urine Blood (Auto) Negative Urine Nitrite Negative Urine Bilirubin (Auto) Negative Urine Urobilinogen (Auto) Normal mg/dL Urine Leukocyte Esterase (Auto) Negative Urine RBC 0 /HPF Urine WBC 0 /HPF Urine Squamous Epithelial Cells Mod /LPF Urine Bacteria 0 /HPF Current Medications Medications (Trade) Dose Ordered Sig/Tim Route PRN Reason Start Time Stop Time Status Last Admin Dose Admin Sodium Chloride 1,000 ml @ 999 mls/hr 1X ONCE IV 12/17/21 17:30 12/17/21 18:30 DC 12/17/21 17:49 Fentanyl Citrate (Fentanyl 2ml Vial) 50 mcg 1X ONCE IVP 12/17/21 17:30 12/17/21 17:31 DC 12/17/21 17:49 Metoclopramide HCl (Reglan Vial) 10 mg 1X ONCE IVP 12/17/21 17:30 12/17/21 17:31 DC 12/17/21 17:48 Iohexol (Omnipaque 300 Mg/ml) 75 ml 1X ONCE IV 12/17/21 18:15 12/17/21 18:16 DC 12/17/21 18:15 Info (CONTRAST GIVEN -- Rx MONITORING) 1 each PRN DAILY PRN MC SEE COMMENTS 12/17/21 18:15 12/19/21 18:14 Hydromorphone HCl (Dilaudid) 0.5 mg 1X ONCE IVP 12/17/21 19:00 12/17/21 19:03 DC 12/17/21 19:07 Famotidine (Pepcid Vial) 20 mg 1X ONCE IVP 12/17/21 20:00 12/17/21 20:01 DC 12/17/21 20:00 Vital Signs: Vital Signs Date Time Temp Pulse Resp B/P (MAP) Pulse Ox O2 Delivery O2 Flow Rate FiO2 12/17/21 22:27 68 18 187/70 (109) 97 Room Air 12/17/21 21:57 70 18 173/71 (105) 96 Room Air 12/17/21 21:44 20 99 Room Air 12/17/21 21:27 68 13 187/78 (114) 96 Room Air 12/17/21 20:57 76 14 182/77 (112) 96 Room Air 12/17/21 20:27 74 22 183/74 (110) 97 Room Air 12/17/21 19:57 74 15 182/80 (114) 96 Room Air 12/17/21 19:27 80 19 168/75 (106) 96 Room Air 12/17/21 19:07 16 99 Room Air 12/17/21 17:49 18 100 Room Air 12/17/21 16:56 98.2 71 15 185/84 (117) Room Air 98.2 Vital Signs Date Time Temp Pulse Resp B/P (MAP) Pulse Ox O2 Delivery O2 Flow Rate FiO2 12/17/21 17:49 18 100 Room Air 12/17/21 16:56 98.2 71 15 185/84 (117) Room Air 98.2 EKG: EKG: [] Radiology/Procedures: Radiology/Procedures: REASON: ABDOMINAL PAIN AND N/V PROCEDURE: CT ABD PELV W/ IV CONTRST ONLY CT OF THE ABDOMEN AND PELVIS WITH IV CONTRAST. History: Reason: ABDOMINAL PAIN AND N/V: Comparison:September 28, 2021. Procedure: Contiguous axial images of the abdomen and pelvis were performed after the administration of 75 cc of Omnipaque 300 IV contrast. Oral contrast: No. Findings: Linear opacities in the lung bases are likely discoid atelectasis. There has been prior cholecystectomy. There has been prior appendectomy. This 1.9 cm long moderate wall thickening of the high rectum. Liver: Unremarkable Spleen: Unremarkable Pancreas: Unremarkable Adrenal Glands: Unremarkable Kidneys: Unremarkable There is no mass or lymphadenopathy. There is no free air. There is no free fluid. The urinary bladder appears normal. 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 Recommend follow-up procedure such as a sigmoidoscopy. End Impression PQRS Compliance Statement: One or more of the following individualized dose reduction techniques were utilized for this examination: 1. Automated exposure control 2. Adjustment of the mA and/or kV according to patient size 3. Use of iterative reconstruction technique Electronically signed by: Lane aPk III, MD (12/17/2021 7:23 PM) [facility] DICTATED and SIGNED BY: LANE PAK III, MD DATE: 12/17/211901 [] Course & Med Decision Making: Course & Med Decision Making Pertinent Labs and Imaging studies reviewed. (See chart for details) [address] Delarosa with the hospitalist group reviewed patient's radiological and laboratory results, he is agreeable to admitting the patient overnight for further evaluation by gastrointestinal specialist in relation to the abnormal findings on the CT scan, patient's white count was elevated so that is a concern as well along with her glucose being elevated. I did speak to patient regarding the plan to admit her and she is agreeable with the plan of care. Dragon Disclaimer: Dragon Disclaimer: This electronic medical record was generated, in whole or in part, using a voice recognition dictation system. Departure Departure Impression: Primary Impression: Intractable abdominal pain Additional Impressions: Lesion of rectum Leukocytosis Qualified Codes: D72.829 - Elevated white blood cell count, unspecified Disposition: ADMITTED INPATIENT Admitting Physician: SHEILA Condition: STABLE Referrals: Chang MENDOZA MD (PCP) FELA GUZMAN NEGATIVE ASSEMBLER Dec 17, 2021 17:17
[2021-12-17] MEDS ORDERED: IV NORMAL SALINE 1000ML BAG 1,000 ML IV ONE (17:30)
[2021-12-17] MEDS ORDERED: fentaNYL PF VIAL 100 MCG/2 ML VIAL IVP ONE (17:30)
[2021-12-17] MEDS ORDERED: METOCLOPRAMIDE HCL 10 MG/2 ML VIAL. IVP ONE (17:30)
[2021-12-17 17:51] LABS: BASO # 0.1 x10^3/uL (0.0-0.2); BASO % 1 % (0-3); EOS % 0 % (0-3); HEMATOCRIT 40.4 % (36.0-47.0); HEMOGLOBIN 13.5 g/dL (12.0-15.5); LYMPH % 23 % (24-48); MEAN CORPUSCULAR HEMOGLOBIN 30 pg (25-35); MEAN CORPUSCULAR HGB CONC 33 g/dL (31-37); MEAN CORPUSCULAR VOLUME 89 fL (79-100); MONO # 0.8 x10^3/uL (0.0-1.1); MONO % 6 % (0-9); NEUT # 9.3 x10^3/uL (1.8-7.7); NEUT % 70 % (31-73); PLATELET COUNT 270 x10^3/uL (140-400); RED BLOOD COUNT 4.53 x10^6/uL (3.50-5.40); RED CELL DISTRIBUTION WIDTH 14.8 % (11.5-14.5); WHITE BLOOD COUNT 13.2 x10^3/uL (4.0-11.0)
[2021-12-17 18:15] LABS: CALCIUM 8.7 mg/dL (8.5-10.1); GFR 70.5; POTASSIUM 3.7 mmol/L (3.5-5.1)
[2021-12-17] MEDS ORDERED: IOHEXOL 300 MG/ML 100ML VIAL. IV ONE (18:15)
[2021-12-17] MEDS ORDERED: CONTRAST GIVEN. MC PRN (18:15)
[2021-12-17 18:22] LABS: ALBUMIN 3.2 g/dL (3.4-5.0); ALBUMIN/GLOBULIN RATIO 0.7 (1.0-1.7); TOTAL BILIRUBIN 0.4 mg/dL (0.2-1.0); TOTAL PROTEIN 7.6 g/dL (6.4-8.2)
[2021-12-17] MEDS ORDERED: HYDROmorphone 2 MG/ML INJ. IVP ONE (19:00)
--- NOTE | 2021-12-17 19:25 | RAD ---
CT OF THE ABDOMEN AND PELVIS WITH IV CONTRAST. History: Reason: ABDOMINAL PAIN AND N/V: Comparison:September 28, 2021. Procedure: Contiguous axial images of the abdomen and pelvis were performed after the administration of 75 cc o f Omnipaque 300 IV contrast. Oral contrast: No. Findings: Linear opacities in the lung bases are likely discoid atelectasis. There has been prior cholecystectomy. There has been prior appendectomy. This 1.9 cm long moderate wall thickening of the high rectum. Liver: Unremarkable Spleen: Unremarkable Pancreas: Unremarkable Adrenal Glands: Unremarkable Kidneys: Unremarkable There is no mass or lymphadenopathy. There is no free air. There is no free fluid. The urinary bladder appears normal. 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 Recommend follow-up procedure such as a sigmoidoscopy. End Impression PQRS Compliance Statement: One or more of the following individualized dose reduction techniques were utilized for this examinat ion: 1. Automated exposure control 2. Adjustment of the mA and/or kV according to patient size 3. Use of iterative reconstruction technique Electronically signed by: Jr Perez III, MD (12/17/2021 7:23 PM) [facility]
[2021-12-17] MEDS ORDERED: FAMOTIDINE 20 MG/2 ML VIAL IVP ONE (20:00)
[2021-12-17 20:23] LABS: BACTERIA,URINE 0 /HPF (0-FEW); RBC,URINE 0 /HPF (0-2); WBC,URINE 0 /HPF (0-4)
[2021-12-17] MEDS ORDERED: ONDANSETRON PF 4 MG/2 ML VIAL. IVP PRN (20:45)
[2021-12-17] MEDS ORDERED: DEXTROSE 50% 25 GM / 50ML DISP.SYRIN. IV PRN (21:15)
[2021-12-17] MEDS ORDERED: IV DEXTROSE 5% 250 ML BAG. IV PRN (21:15)
[2021-12-17] MEDS: INSULIN LISPRO 300 UNITS/3 ML VIAL. SQ SCH (21:15)
[2021-12-17] MEDS ORDERED: ACETAMINOPHEN 325 MG TABLET. PO PRN (21:15)
[2021-12-17] MEDS: IV NORMAL SALINE 1000ML BAG 1,000 ML IV SCH (21:43)
[2021-12-17] MEDS: ONDANSETRON PF 4 MG/2 ML VIAL. IVP PRN (21:43)
[2021-12-17] MEDS: fentaNYL PF VIAL 100 MCG/2 ML VIAL IVP PRN (21:44)
[2021-12-17 22:40] VITALS: BP 159/79
[2021-12-18] VITALS (7 sets, daily range): BP systolic 167–217; BP diastolic 71–97
[2021-12-18] MEDS: fentaNYL PF VIAL 100 MCG/2 ML VIAL IVP PRN ×7 (00:13→15:04)
[2021-12-18] MEDS: ONDANSETRON PF 4 MG/2 ML VIAL. IVP PRN ×4 (03:42→20:45)
[2021-12-18] MEDS ORDERED: CLOP75TA PO (04:36)
[2021-12-18] MEDS: IV NORMAL SALINE 1000ML BAG 1,000 ML IV SCH ×2 (06:45→16:45)
[2021-12-18] MEDS: INSULIN LISPRO 300 UNITS/3 ML VIAL. SQ SCH ×4 (09:11→21:00)
--- NOTE | 2021-12-18 09:27 | PDOC2 ---
GI CONSULT Date of Service: DATE: 12/18/21 TIME: : Reason For Consult: apple core lesion of rectum HPI: HPI: 51 y/o female admitted through ER. Ill x 3 weeks w/ decreased appetite, nausea, mid/upper abdominal discomfort, and intermittent diarrhea. Denies precipitating events. Similar symptoms occur 4-5 times yearly, previously hospitalized @ . Usually feels better with time - no specific medications. Says she puts food in her mouth and chews it up but can't make it go down because she feels sick. Pain comes and goes - not sure if worse after eating/drinking. Estimates ~15 pound weight loss during this time. H/o GERD on pantoprazole. No dysphagia, vomiting/hematemesis, constipation, hematochezia, or melena. Reports normal EGD and colonoscopy last year @ except diverticulosis. Did have abnormal GES there - was told she had gastroparesis and advised to eat small frequent meals. S/p cholecystectomy (no stones). No liver, pancreas, or PUD history. PRN Tylenol and ibuprofen at home. H/o CVA and PVD on Plavix and ASA; however, has not taken any medications for >[address] Mendoza is PCP, thinks last A1c was ~11. Hemoccult was positive 09/2021. PMH: PMH: CVA, PVD s/p LE balloon angioplasty, HTN, HLD, DM, peripheral neuropathy, depression/anxiety, arthritis cholecystectomy, appendectomy, hysterectomy FH: Family History: Cancer (grandfather - colon) Social History: Smoke: <1 pack per day ALCOHOL: none Drugs: Marijuana (says not daily - uses to help with appetite) ROS: GEN: Denies fevers, chills, sweats HEENT: Denies blurred vision, sore throat CV: Denies chest pain RESP: Denies shortness of air, cough GI: Per HPI : Denies hematuria, dysuria ENDO: +weight loss NEURO: Denies confusion, dizziness MSK: Denies weakness, joint pain/swelling SKIN: Denies jaundice, pruritus Vitals: Vitals: Vital Signs Date Time Temp Pulse Resp B/P (MAP) Pulse Ox O2 Delivery O2 Flow Rate FiO2 12/18/21 09:11 Room Air 12/18/21 07:10 97.5 66 20 179/97 (124) 97 97.5 Labs: Labs: Laboratory Tests Test 12/17/21 17:40 12/17/21 20:09 12/17/21 21:30 12/18/21 05:06 White Blood Count 13.2 x10^3/uL (4.0-11.0) Red Blood Count 4.53 x10^6/uL (3.50-5.40) Hemoglobin 13.5 g/dL (12.0-15.5) Hematocrit 40.4 % (36.0-47.0) Mean Corpuscular Volume 89 fL (79-100) Mean Corpuscular Hemoglobin 30 pg (25-35) Mean Corpuscular Hemoglobin Concent 33 g/dL (31-37) Red Cell Distribution Width 14.8 % (11.5-14.5) Platelet Count 270 x10^3/uL (140-400) Neutrophils (%) (Auto) 70 % (31-73) Lymphocytes (%) (Auto) 23 % (24-48) Monocytes (%) (Auto) 6 % (0-9) Eosinophils (%) (Auto) 0 % (0-3) Basophils (%) (Auto) 1 % (0-3) Neutrophils # (Auto) 9.3 x10^3/uL (1.8-7.7) Lymphocytes # (Auto) 3.0 x10^3/uL (1.0-4.8) Monocytes # (Auto) 0.8 x10^3/uL (0.0-1.1) Eosinophils # (Auto) 0.0 x10^3/uL (0.0-0.7) Basophils # (Auto) 0.1 x10^3/uL (0.0-0.2) Sodium Level 136 mmol/L (136-145) Potassium Level 3.7 mmol/L (3.5-5.1) Chloride Level 101 mmol/L (98-107) Carbon Dioxide Level 25 mmol/L (21-32) Anion Gap 10 (6-14) Blood Urea Nitrogen 9 mg/dL (7-20) Creatinine 1.0 mg/dL (0.6-1.0) Estimated GFR (Cockcroft-Gault) 70.5 BUN/Creatinine Ratio 9 (6-20) Glucose Level 340 mg/dL (70-99) Lactic Acid Level 2.7 mmol/L (0.4-2.0) 1.6 mmol/L (0.4-2.0) Calcium Level 8.7 mg/dL (8.5-10.1) Total Bilirubin 0.4 mg/dL (0.2-1.0) Aspartate Amino Transf (AST/SGOT) 19 U/L (15-37) Alanine Aminotransferase (ALT/SGPT) 25 U/L (14-59) Alkaline Phosphatase 101 U/L (46-116) Total Protein 7.6 g/dL (6.4-8.2) Albumin 3.2 g/dL (3.4-5.0) Albumin/Globulin Ratio 0.7 (1.0-1.7) Lipase 28 U/L (73-393) Urine Collection Type Unknown Urine Color (Auto) Light yellow Urine Turbidity Clear Urine pH (Auto) 6.0 (<5.0-8.0) Urine Specific [place] >1.050 (1.000-1.030) Urine Protein (Auto) Negative mg/dL (Negative) Urine Glucose (Auto)(UA) >=1000 mg/dL (Negative) Urine Ketones (Auto) Negative mg/dL (Negative) Urine Blood (Auto) Negative (Negative) Urine Nitrite Negative (Negative) Urine Bilirubin (Auto) Negative (Negative) Urine Urobilinogen (Auto) Normal mg/dL (Normal) Urine Leukocyte Esterase (Auto) Negative (Negative) Urine RBC 0 /HPF (0-2) Urine WBC 0 /HPF (0-4) Urine Squamous Epithelial Cells Mod /LPF Urine Bacteria 0 /HPF (0-FEW) Glucose (Fingerstick) 246 mg/dL (70-99) Test 12/18/21 07:22 Glucose (Fingerstick) 275 mg/dL (70-99) Allergies: Coded Allergies: lisinopril (Verified Allergy, Intermediate, 12/17/21) Medications: Current Medications Medications (Trade) Dose Ordered Sig/Tim Route PRN Reason Start Time Stop Time Status Last Admin Dose Admin Sodium Chloride 1,000 ml @ 999 mls/hr 1X ONCE IV 12/17/21 17:30 12/17/21 18:30 DC 12/17/21 17:49 Fentanyl Citrate (Fentanyl 2ml Vial) 50 mcg 1X ONCE IVP 12/17/21 17:30 12/17/21 17:31 DC 12/17/21 17:49 Metoclopramide HCl (Reglan Vial) 10 mg 1X ONCE IVP 12/17/21 17:30 12/17/21 17:31 DC 12/17/21 17:48 Iohexol (Omnipaque 300 Mg/ml) 75 ml 1X ONCE IV 12/17/21 18:15 12/17/21 18:16 DC 12/17/21 18:15 Hydromorphone HCl (Dilaudid) 0.5 mg 1X ONCE IVP 12/17/21 19:00 12/17/21 19:03 DC 12/17/21 19:07 Famotidine (Pepcid Vial) 20 mg 1X ONCE IVP 12/17/21 20:00 12/17/21 20:01 DC 12/17/21 20:00 Fentanyl Citrate (Fentanyl 2ml Vial) 50 mcg PRN Q1HR PRN IVP PAIN 12/17/21 20:45 12/18/21 20:44 12/18/21 09:11 Sodium Chloride 1,000 ml @ 100 mls/hr Q10H IV 12/17/21 20:45 12/18/21 20:44 12/17/21 21:43 Ondansetron HCl (Zofran) 4 mg PRN Q4HRS PRN IVP NAUSEA/VOMITING 1ST CHOICE 12/17/21 21:15 12/18/21 07:54 Insulin Human Lispro (HumaLOG) 0-9 UNITS TIDACHC SQ 12/17/21 21:15 12/18/21 09:11 Imaging: Imaging: CT A/P Findings: Linear opacities in the lung bases are likely discoid atelectasis. There has been prior cholecystectomy. There has been prior appendectomy. This 1.9 cm long moderate wall thickening of the high rectum. Liver: Unremarkable Spleen: Unremarkable Pancreas: Unremarkable Adrenal Glands: Unremarkable Kidneys: Unremarkable There is no mass or lymphadenopathy. There is no free air. There is no free fluid. The urinary bladder appears normal. 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 Recommend follow-up procedure such as a sigmoidoscopy. PE: GEN: NAD HEENT: Atraumatic, PERRL LUNGS: CTAB HEART: RRR ABD: quiet BS, S/ND, periumbilical discomfort EXTREMITY: No edema SKIN: No rashes, no jaundice NEURO/PSYCH: A & O 3 A/P: A/P: Recurrent nausea, mid/upper abd pain, anorexia, diarrhea Abnormal CT - apple-core lesion in rectum H/o GERD and gastroparesis CRC screen, FH CRC - UTD Diverticulosis S/p cholecystectomy HTN, DM - per primary H/o CVA and PVD - hasn't taken Plavix or ASA for >1 week -- D/w Dr. Tamayo - can plan for flex sig this afternoon to settle the issue of abnormal CT w/ reportedly normal colonoscopy last year. D/w nurse - see orders for prep - pt agreeable. Other symptoms are chronic/recurrent - perhaps combination of delayed gastric emptying, GERD, uncontrolled DM +/- marijuana use. Continue PPI, consider trial of Reglan. Will ask for records from [facility], check tox screen. Not anemia/microcytic but will check irons for completeness. LESLEE FAIRCHILD Dec 18, 2021 09:27
[2021-12-18] MEDS: PANTOPRAZOLE IV PUSH 40 MG VIAL. IVP SCH (10:26)
[2021-12-18] MEDS ORDERED: MAGNESIUM CITRATE 296 ML SOLUTION. PO ONE (10:30)
[2021-12-18] MEDS ORDERED: PROCHLORPERAZINE 10 MG/2 ML VIAL. IV PRN (11:15)
--- NOTE | 2021-12-18 11:40 | HP ---
DATE OF SERVICE: 12/18/2021 ADMIT DATE: 12/17/2021 CHIEF COMPLAINT: Abdominal pain, nausea, vomiting, diarrhea. HISTORY OF PRESENT ILLNESS: The patient is a pleasant 51-year-old female who presents to the ER with nausea, vomiting, abdominal pain and diarrhea. We did a CAT scan of the abdomen, showing an apple core lesion in the rectum. We were concerned she could have a possible malignancy. We are going to admit the patient and consult GI. PAST MEDICAL HISTORY: Diabetes, hypertension, overweight, chronic pain, neuropathy, some type of stomach stent, leg stents in both legs. ALLERGIES: LISINOPRIL. FAMILY HISTORY: Diabetes. SOCIAL HISTORY: She smokes marijuana. No drink or drugs. MEDICATIONS: Reviewed, please refer to the [facility]AD. REVIEW OF SYSTEMS: GENERAL: No history of weight change, weakness or fevers. SKIN: No bruising, hair changes or rashes. EYES: No blurred, double or loss of vision. NOSE AND THROAT: No history of nosebleeds, hoarseness or sore throat. HEART: No history of palpitations, chest pain or shortness of breath on exertion. LUNGS: Denies cough, hemoptysis, wheezing or shortness of breath. GASTROINTESTINAL: She complains of severe pain in her abdomen and rectum. She also complains of nausea, vomiting, diarrhea. GENITOURINARY: No history of frequency, urgency, hesitancy or nocturia. NEUROLOGIC: Denies history of numbness, tingling, tremor or weakness. PSYCHIATRIC: No history of panic, anxiety or depression. ENDOCRINE: No history of heat or cold intolerance, polyuria or polydipsia. EXTREMITIES: Denies muscle weakness, joint pain, pain on walking or stiffness. PHYSICAL EXAMINATION: VITALS: Within normal limits and are stable. GENERAL: No apparent distress. Alert and oriented. HEENT: Normal cephalic atraumatic, external auditory canals are patent. EYES: Extraocular muscles are intact, pupils are equally round and reactive to light and accommodation. MUSCULOSKELETAL: Well developed, well nourished, good range of motion. ENDOCRINE: No thyromegaly was palpated. LYMPHATICS: No cervical chain or axillary nodes were noted. HEMATOPOIETIC: No bruising. NECK: Supple, no JVD, no thyromegaly was noted. LUNGS: Clear to auscultation in all lung ramirez without rhonchi or wheezing. HEART: RRR, S1, S2 present. Peripheral pulses intact, no obvious murmurs were noted. ABDOMEN: Soft, nontender. Positive bowel sounds no organomegaly, normal bowel sounds. EXTREMITIES: Without any cyanosis, clubbing, or edema. Pedal pulses intact, Homans sign is negative. NEUROLOGIC: Normal speech, normal tone. A and O x 3, moves all extremities, no obvious focal deficits. PSYCHIATRIC: Normal affect, normal mood. Stable. SKIN: No ulcerations or rashes, good skin turgor, no jaundice. VASCULAR: Good capillary refill, neurovascular bundle appears to be intact. LABORATORY DATA: White count is 13, hemoglobin is 13. Electrolytes are normal. Urinalysis negative. CT of the abdomen shows an apple core lesion in the rectum. ASSESSMENT AND PLAN: Abdominal pain, nausea, vomiting, diarrhea and abnormal CAT scan with apple core lesion, suspect possible malignancy. We consulted GI. She is going for a flexible sigmoidoscopy this afternoon. For now, IV fluids, p.r.n. fentanyl, p.r.n. Compazine. Home meds. Deep venous thrombosis prophylaxis. Full code. PROGNOSIS: Guarded. TIARA DR: Shawn TID: [id number]
--- NOTE | 2021-12-18 12:26 | NUR ---
Enema completed at approximately 1210. Patient tolerated intervention somewhat well.
[2021-12-18] MEDS ORDERED: LIDOCAINE 2% PF 5 ML VIAL. ONE (13:46)
[2021-12-18] MEDS ORDERED: PROPOFOL 10 MG/ML (20ML) VIAL. IV ONE ×2 (13:46)
--- NOTE | 2021-12-18 14:16 | PDOC4 ---
PROCEDURE Procedure Flexible sigmoidoscopy Possible apple core mass lesion in the rectum on CT scan Anesthesia: Propofol Rectal exam revealed some small internal hemorrhoids and no evidence for mass. Sigmoidoscopy revealed a normal rectum and sigmoid up to 35 cm where solid stool was reached so no further evaluation was performed. There was no mass or apple core lesion seen. Retroflexed view revealed small internal hemorrhoids but was otherwise negative. There was some spasm at the rectosigmoid junction which may have been interpreted as an apple core lesion. LEYDI CROUCH MD Dec 18, 2021 14:16
[2021-12-18] MEDS: hydrALAZINE 20 MG/ML VIAL. IVP PRN ×2 (15:08→20:47)
[2021-12-18] MEDS: METOCLOPRAMIDE HCL 10 MG/2 ML VIAL. IVP SCH (16:45)
[2021-12-18] MEDS: HYDROcodone/APAP 10/325 1 TAB TABLET PO PRN (20:47)
[2021-12-18] MEDS: LOSARTAN POTASSIUM 50 MG TABLET. PO SCH (23:24)
[2021-12-18] MEDS: HEPARIN for SUB-Q USE 5,000 UNIT/ML VIAL. SQ SCH (23:30)
[2021-12-18] MEDS ORDERED: PROCHLORPERAZINE 10 MG/2 ML VIAL. IM ONE (23:30)
[2021-12-18] MEDS ORDERED: diphenhydrAMINE 50 MG/ML VIAL IVP ONE (23:30)
[2021-12-19] MEDS: CARVEDILOL 12.5 MG TABLET. PO SCH ×2 (00:12→10:06)
[2021-12-19] MEDS: GABAPENTIN 300 MG CAPSULE. PO SCH ×2 (00:13→08:15)
[2021-12-19 03:40] VITALS: BP 173/89
[2021-12-19] MEDS: HEPARIN for SUB-Q USE 5,000 UNIT/ML VIAL. SQ SCH (06:34)
[2021-12-19 07:00] VITALS: BP 124/73
[2021-12-19] MEDS: HYDROcodone/APAP 10/325 1 TAB TABLET PO PRN (08:14)
[2021-12-19] MEDS: METOCLOPRAMIDE HCL 10 MG/2 ML VIAL. IVP SCH ×2 (08:15→11:30)
[2021-12-19] MEDS: PANTOPRAZOLE IV PUSH 40 MG VIAL. IVP SCH (08:15)
[2021-12-19] MEDS: INSULIN LISPRO 300 UNITS/3 ML VIAL. SQ SCH ×2 (08:21→11:30)
--- NOTE | 2021-12-19 10:00 | NUR ---
Patient declined ventilation mechanic consult.
[2021-12-19 10:06] VITALS: BP 124/73
[2021-12-19] MEDS: LOSARTAN POTASSIUM 50 MG TABLET. PO SCH (10:06)
[2021-12-19] MEDS ORDERED: SENN1TAB99 PO (11:17)
--- NOTE | 2021-12-19 11:18 | DISCH ---
DISCHARGE INSTRUCTIONS Condition on Discharge Condition on Discharge: Stable Activity After Discharge Activity Instructions for Disc: Activity as tolerated Bathing Instructions: No Tub Bath until see Lifting Instructions after Dis: No heavy lifting, No pulling or pushing, Do not lift >10 pounds Exercise Instruction after Dis: Progress as tolerated Driving Instructions after Dis: Do not drive today Weight Bearing Status after Di: Full weight bearing Diet after Discharge Diet after Discharge: Cardiac Liquid Texture: Thin Liquid Wound Incision Care Wound/Incision Care: Ice to area for comfort, Change dressing, May get incision wet Checks after Discharge Checks after discharge: Check blood press - daily, Weigh Yourself Daily Follow-Up Follow up with: PCP within 2 weeks of discharge Follow Up With: Gastroenterology as scheduled or as needed Treatment/Equipment after DC Adaptive Equipment Issued: None MORALES GILL MD Dec 19, 2021 11:18
[2021-12-19] MEDS ORDERED: METO5TAB55 PO (11:28)
--- NOTE | 2021-12-19 11:35 | PDOC ---
Date of Service: DATE: 12/19/21 TIME: 11: Subjective: Subjective: Feeling better - tolerating clear/full liquids and plans to try some regular food. Abdominal pain is better. Stooling. Wants to go home today. Objective: Objective: D/w nurse - possible discharge w/ Reglan today. No records from [facility]. Vital Signs: Vital Signs Date Time Temp Pulse Resp B/P (MAP) Pulse Ox O2 Delivery O2 Flow Rate FiO2 12/19/21 10:06 66 124/73 12/19/21 08:44 Room Air 12/19/21 07:00 97.8 14 96 97.8 12/18/21 14:13 3.0 Labs: Laboratory Tests Test 12/18/21 11:33 12/18/21 16:40 12/18/21 21:21 12/19/21 08:07 Glucose (Fingerstick) 228 mg/dL 145 mg/dL 162 mg/dL 261 mg/dL Test 12/19/21 10:54 Glucose (Fingerstick) 233 mg/dL Imaging: Flex Sig 12/18 Flexible sigmoidoscopy Possible apple core mass lesion in the rectum on CT scan Anesthesia: Propofol Rectal exam revealed some small internal hemorrhoids and no evidence for mass. Sigmoidoscopy revealed a normal rectum and sigmoid up to 35 cm where solid stool was reached so no further evaluation was performed. There was no mass or apple core lesion seen. Retroflexed view revealed small internal hemorrhoids but was otherwise negative. There was some spasm at the rectosigmoid junction which may have been interpreted as an apple core lesion. PE: GEN: NAD, up in chair LUNGS: CTAB HEART: RRR ABD: S/ND/NT NEURO/PSYCH: A & O 3 A/P: Recurrent nausea, mid/upper abd pain, anorexia - better H/o GERD and gastroparesis Abnormal CT -- No mass ("apple core lesion") on flex sig. Tolerating diet w/ Reglan. Consider DC soon w/ Rx for this - we discussed not ideal for long-term use due to possible adverse effects, but can be helpful during symptom flares. Continue PPI. F/u w/ PCP for ongoing DM management. Justicifation of Admission Dx: Justifications for Admission: Justification of Admission Dx: Yes LESLEE FAIRCHILD Dec 19, 2021 11:35
--- NOTE | 2021-12-19 12:08 | NUR ---
Patient verbalized understanding of discharge instructions. Patient had no questions at this time.
--- NOTE | 2021-12-19 12:22 | NUR ---
Patient refused scheduled medication prior to discharge, patient stated lunch had not arrived yet and would resume medication at home.
--- NOTE | 2021-12-20 13:00 | PDOC3 ---
[facility]-Discharge Summary Date of Admission: Date of Admission: Dec 18, 2021 Date of Discharge: Date of Discharge: Dec 19, 2021 Discharge Diagnosis: Discharge Diagnosis: Intractable abdominal pain likely due to constipation Patient does have a history of GERD and gastroparesis Consults: Consults: per GI: A/P: Recurrent nausea, mid/upper abd pain, anorexia - better H/o GERD and gastroparesis Abnormal CT -- No mass ("apple core lesion") on flex sig. Tolerating diet w/ Reglan. Consider DC soon w/ Rx for this - we discussed not ideal for long-term use due to possible adverse effects, but can be helpful during symptom flares. Continue PPI. F/u w/ PCP for ongoing DM management. Procedures: Procedures: Colonoscopy Hospital Course: Hospital Course: 51-year-old female who presents to the ER with nausea, vomiting, abdominal pain and diarrhea. We did a CAT scan of the abdomen, showing an apple core lesion in the rectum. We were concerned she could have a possible malignancy. We are going to admit the patient and consult GI. Underwent colonoscopy with GI and found to have no malignant lesions. No biopsies were done. Possible constipation and stool impaction. Patient was given bowel regimen after the colonoscopy. Patient had good bowel movement before discharge and was clinically stable. She will need to follow-up closely with gastroenterology as needed. She will also need to continue with Reglan 5 mg 3 times daily with meals. Rest of hospital course was uneventful. Disposition: Disposition/Orders: D/C to Home Activity: Activity: Resume previous activity Diet: Diet: Soft Medications: Home Meds Active Scripts Metoclopramide Hcl (REGLAN) 5 Mg Tablet, 1 TAB PO TIDAC for gastroparesis for 20 Days, #60 TAB 0 Refills 1 hour prior to procedure Prov:MORALES GILL MD 12/19/21 Sennosides/Docusate Sodium (Senna-Docusate Sodium Tablet) 1 Each Tablet, 2 TAB PO BID PRN for CONSTIPATION for 10 Days, #40 TAB 0 Refills Prov:MORALES GILL MD 12/19/21 Tramadol Hcl (TRAMADOL HCL) 50 Mg Tablet, 50 MG PO DAILY PRN for PAIN, #20 TAB 0 Refills Prov:BECKA NUÑEZ FACILITY PLANNER 10/09/21 Reported Medications Clopidogrel Bisulfate (CLOPIDOGREL) 75 Mg Tablet, 75 MG PO DAILY for TO PREVENT BLOOD CLOTS, #30 TAB 0 Refills 12/18/21 Bupropion Hcl (BUPROPION XL) 150 Mg Tab.er.24h, 1 TAB PO DAILY for , #30 TAB 10/01/21 Atorvastatin Calcium (ATORVASTATIN CALCIUM) 40 Mg Tablet, 40 MG PO DAILY for FOR CHOLESTEROL, #30 TAB 0 Refills 04/20/21 Carvedilol (CARVEDILOL) 25 Mg Tablet, 25 MG PO BIDWMEALS for CARDIAC, TAB 04/20/21 Fluoxetine Hcl (FLUOXETINE HCL) 20 Mg Capsule, 20 MG PO DAILY for PRESCRIBED, CAP 04/20/21 Furosemide (FUROSEMIDE) 20 Mg Tablet, 20 MG PO DAILY for PRESCRIBED, TAB 04/20/21 Gabapentin (GABAPENTIN) 600 Mg Tablet, 600 MG PO TID for NEUROGENIC PAIN, TAB 04/20/21 Insulin Detemir (LEVEMIR) 100 Unit/1 Ml Vial, 36 UNIT SQ HS for PRESCRIBED, EACH 04/20/21 Losartan Potassium (LOSARTAN POTASSIUM) 100 Mg Tablet, 100 MG PO DAILY for HYPERTENSION, TAB 04/20/21 Methocarbamol (METHOCARBAMOL) 500 Mg Tablet, 500 MG PO TIDAFTMEAL PRN for PRESCRIBED, TAB 04/20/21 Insulin Aspart (NOVOLOG) 100 Unit/1 Ml Vial, 12 UNIT SQ TIDAC for PRESCRIBED, EACH 04/20/21 Oxybutynin Chloride (OXYBUTYNIN CHLORIDE) 5 Mg Tablet, 5 MG PO BID for PRESCRIBED, TAB 04/20/21 Pantoprazole Sodium (PROTONIX) 20 Mg Tablet.dr, 40 MG PO DAILY for PRESCRIBED, TAB 04/20/21 Trazodone Hcl (TRAZODONE HCL) 100 Mg Tablet, 100 MG PO HS for PRESCRIBED, TAB 04/20/21 Discontinued Reported Medications Buspirone Hcl (BUSPIRONE HCL) 10 Mg Tablet, 10 MG PO 6XDAY for PRESCRIBED, TAB 04/20/21 Clopidogrel Bisulfate (CLOPIDOGREL) 75 Mg Tablet, 75 MG PO DAILY for TO PREVENT BLOOD CLOTS, #30 TAB 0 Refills 04/20/21 Hydroxyzine Hcl (HYDROXYZINE HCL) 25 Mg Tablet, 25 MG PO TID for PRESCRIBED, TAB 04/20/21 Quetiapine Fumarate (SEROQUEL) 400 Mg Tablet, 400 MG PO HS for PRESCRIBED, TAB 04/20/21 Discontinued Scripts Cephalexin (CEPHALEXIN) 500 Mg Tablet, 1 TAB PO BID, #14 TAB Prov:BECKA NUÑEZ FACILITY PLANNER 10/09/21 Scheduled Atorvastatin Calcium (Atorvastatin Calcium), 40 MG PO DAILY, (Reported) Bupropion Hcl (Bupropion Xl), 1 TAB PO DAILY, (Reported) Carvedilol (Carvedilol), 25 MG PO BIDWMEALS, (Reported) Clopidogrel Bisulfate (Clopidogrel), 75 MG PO DAILY, (Reported) Fluoxetine Hcl (Fluoxetine Hcl), 20 MG PO DAILY, (Reported) Furosemide (Furosemide), 20 MG PO DAILY, (Reported) Gabapentin (Gabapentin), 600 MG PO TID, (Reported) Insulin Aspart (Novolog), 12 UNIT SQ TIDAC, (Reported) Insulin Detemir (Levemir), 36 UNIT SQ HS, (Reported) Losartan Potassium (Losartan Potassium), 100 MG PO DAILY, (Reported) Methocarbamol (Methocarbamol), 500 MG PO TIDAFTMEAL PRN, (Reported) Metoclopramide Hcl (Reglan), 1 TAB PO TIDAC Oxybutynin Chloride (Oxybutynin Chloride), 5 MG PO BID, (Reported) Pantoprazole Sodium (Protonix), 40 MG PO DAILY, (Reported) Trazodone Hcl (Trazodone Hcl), 100 MG PO HS, (Reported) Scheduled PRN Sennosides/Docusate Sodium (Senna-Docusate Sodium Tablet), 2 TAB PO BID PRN for CONSTIPATION Tramadol Hcl (Tramadol Hcl), 50 MG PO DAILY PRN for PAIN Discontinued Medications Buspirone Hcl (Buspirone Hcl), 10 MG PO 6XDAY, (Reported) Cephalexin (Cephalexin), 1 TAB PO BID Clopidogrel Bisulfate (Clopidogrel), 75 MG PO DAILY, (Reported) Hydroxyzine Hcl (Hydroxyzine Hcl), 25 MG PO TID, (Reported) Quetiapine Fumarate (Seroquel), 400 MG PO HS, (Reported) Total Time: Total Time: Total time spent was 35 minutes in preparing scripts, discharge planning with SWI and RN and preparing this discharge summary Patient seen and examined on day of discharge. No acute abnormal findings. Justicifation of Admission Dx: Justifications for Admission: Justification of Admission Dx: Yes MORALES GILL MD Dec 20, 2021 13:00
== END 2021-12-19 12:30 | disposition home or self-care (01) | DRG 392 ==
LOC: ER 16:55 → 4 NORTH 20:30
PROVIDERS: ADMIT Internal Medicine; ATTEND Internal Medicine
PROC: 0DJD8ZZ Inspection of Lower Intestinal Tract, Via Natural or Artificial Opening Endoscopic (ICD-10-PCS; principal; 2021-12-18 14:00)
DX: K59.00 Constipation, unspecified (principal); D72.829 Elevated white blood cell count, unspecified; E11.42 Type 2 diabetes mellitus with diabetic polyneuropathy; E11.43 Type 2 diabetes mellitus with diabetic autonomic (poly)neuropathy; E11.51 Type 2 diabetes mellitus with diabetic peripheral angiopathy without gangrene; E78.00 Pure hypercholesterolemia, unspecified; E78.5 Hyperlipidemia, unspecified; F17.210 Nicotine dependence, cigarettes, uncomplicated; I10 Essential (primary) hypertension; K31.84 Gastroparesis; K57.90 Diverticulosis of intestine, part unspecified, without perforation or abscess without bleeding; E66.3 Overweight; F32.A Depression, unspecified; T50.905A Adverse effect of unspecified drugs, medicaments and biological substances, initial encounter; F41.9 Anxiety disorder, unspecified; G89.29 Other chronic pain; K21.9 Gastro-esophageal reflux disease without esophagitis; M19.90 Unspecified osteoarthritis, unspecified site; Z80.9 Family history of malignant neoplasm, unspecified; Z83.3 Family history of diabetes mellitus; Z86.73 Personal history of transient ischemic attack (TIA), and cerebral infarction without residual deficits; Z90.49 Acquired absence of other specified parts of digestive tract; Z90.710 Acquired absence of both cervix and uterus; Z88.8 Allergy status to other drugs, medicaments and biological substances; Z68.37 Body mass index [BMI] 37.0-37.9, adult; Y92.89 Other specified places as the place of occurrence of the external cause
CPT/HCPCS: 36415; 45331; 74177; 80053; 81001; 82962; 83540; 83550; 83605; 83690; 85025; 96361; 96374; 96375; C9113; J0360; J0780; J1170; J1200; J1644; J1815; J2405; J2704; J2765; J3010; J3490; J7030; Q9967; 99285-25; G0378